=== PATIENT | female | born 1955 | race Two or more races ===

== ENCOUNTER → 2018-07-27 | Outpatient (CLI) | payer BC | END | disposition home or self-care (01) | LOC: LAB 08:58 | PROVIDERS: ATTEND Nurse Practitioner Family | DX: N39.0 Urinary tract infection, site not specified (principal) | CPT/HCPCS: 87086 ==

== ENCOUNTER → 2018-09-24 | Outpatient (CLI) | payer BC ==
[2018-09-24 08:17] LABS: BUN/Creatinine Ratio 21.9; Calcium 8.6 mg/dL (8.5-10.1); Potassium 4.4 mmol/L (3.5-5.1)
== END | disposition home or self-care (01) ==
LOC: LAB 07:09
DX: N30.20 Other chronic cystitis without hematuria (principal); R31.0 Gross hematuria; R39.15 Urgency of urination
CPT/HCPCS: 36415; 80048; 87086

== ENCOUNTER → 2018-12-01 | Outpatient (CLI) | payer BC ==
[2018-12-01 07:35] LABS: Basophils # (auto) 0.1 uL; Basophils % (auto) 1.3 % (0.0-2.0); Eosinophils # (auto) 0.1 uL; Eosinophils % (auto) 1.5 % (0.0-7.0); Hematocrit 37.6 % (36.0-46.0); Hemoglobin 12.3 g/dL (12.2-16.2); Lymphocytes # (auto) 1.8 uL; Lymphocytes % (auto) 42.6 % (10.0-50.0); Mean Corpuscular Hemoglobin 27.6 pg (28.0-32.0); Mean Corpuscular Hgb Conc. 32.8 g/dL (32.0-36.0); Mean Corpuscular Volume 84.1 fL (80.0-100.0); Monocytes # (auto) 0.3 uL; Monocytes % (auto) 6.5 % (0.0-12.0); Neutrophils % (auto) 48.1 % (37.0-80.0); Platelet Count (auto) 246 10^3/uL (140-450); Red Blood Cells 4.47 10^6/uL (4.0-5.20); Red Cell Distribution Width 17.6 % (11.8-14.3); White Blood Cell 4.2 10^3/uL (4.4-10.8)
[2018-12-01 07:55] LABS: Albumin 3.5 g/dL (3.4-5.0); BUN/Creatinine Ratio 18.9; Calcium 8.5 mg/dL (8.5-10.1); Potassium 3.8 mmol/L (3.5-5.1)
[2018-12-01 07:57] LABS: % Iron Saturation 12.1 % (15-50)
[2018-12-01 07:58] LABS: Bilirubin, Total 0.7 mg/dL (0.2-1.0); Total Protein 6.9 g/dL (6.4-8.2)
[2018-12-01 09:20] LABS: Ferritin 6.6 ng/mL (10-322)
== END | disposition home or self-care (01) ==
LOC: LAB 07:09
DX: D46.4 Refractory anemia, unspecified (principal); R10.9 Unspecified abdominal pain
CPT/HCPCS: 36415; 80053; 82607; 82728; 83540; 83550; 85025

== ENCOUNTER → 2019-01-08 | Outpatient (CLI) | payer BC ==
[2019-01-08 12:51] LABS: Urine Bacteria FEW /hpf (None Seen); Urine Blood Negative /uL (Negative); Urine Specific Gravity 1.013 (1.001-1.035); Urine WBC 6 /hpf (0 - 5)
== END | disposition home or self-care (01) ==
LOC: LAB 11:47
DX: N30.20 Other chronic cystitis without hematuria (principal)
CPT/HCPCS: 81001; 87086

== ENCOUNTER → 2019-01-28 | Outpatient (CLI) | payer BC ==
[2019-01-28 13:17] LABS: Basophils # (auto) 0 uL; Basophils % (auto) 0.8 % (0.0-2.0); Eosinophils # (auto) 0.1 uL; Eosinophils % (auto) 1.8 % (0.0-7.0); Hemoglobin 12.1 g/dL (12.2-16.2); Lymphocytes # (auto) 1.9 uL; Lymphocytes % (auto) 38.3 % (10.0-50.0); Mean Corpuscular Hemoglobin 27.6 pg (28.0-32.0); Mean Corpuscular Hgb Conc. 32.8 g/dL (32.0-36.0); Mean Corpuscular Volume 84.3 fL (80.0-100.0); Monocytes # (auto) 0.3 uL; Neutrophils # (auto) 2.5 uL; Neutrophils % (auto) 52.1 % (37.0-80.0); Platelet Count (auto) 229 10^3/uL (140-450); Red Blood Cells 4.39 10^6/uL (4.0-5.20); Red Cell Distribution Width 17.6 % (11.8-14.3); White Blood Cell 4.8 10^3/uL (4.4-10.8)
[2019-01-28 13:34] LABS: INR 1.08 (0.9-1.15); Partial Thromboplastin Time 25.6 sec (23.64-32.05)
[2019-01-28 13:57] LABS: BUN/Creatinine Ratio 15.4; Calcium 8.2 mg/dL (8.5-10.1)
[2019-01-28 14:08] LABS: Urine Blood Negative /uL (Negative)
[2019-01-28 14:10] LABS: Urine Mucus FEW (None Seen); Urine WBC 2 /hpf (0 - 5)
[2019-01-28 14:11] LABS: Urine Bacteria FEW /hpf (None Seen)
== END | disposition home or self-care (01) ==
LOC: LAB 07:05
DX: R39.15 Urgency of urination (principal)
CPT/HCPCS: 36415; 80048; 81001; 85025; 85610; 85730; 87086

== ENCOUNTER → 2019-02-26 | Outpatient (CLI) | payer BC ==
[2019-02-26 07:34] LABS: Basophils # (auto) 0 uL; Basophils % (auto) 0.6 % (0.0-2.0); Eosinophils # (auto) 0.1 uL; Eosinophils % (auto) 1.4 % (0.0-7.0); Hematocrit 37.5 % (36.0-46.0); Hemoglobin 12.3 g/dL (12.2-16.2); Lymphocytes # (auto) 1.5 uL; Mean Corpuscular Hemoglobin 27.5 pg (28.0-32.0); Mean Corpuscular Hgb Conc. 32.7 g/dL (32.0-36.0); Mean Corpuscular Volume 83.9 fL (80.0-100.0); Monocytes # (auto) 0.4 uL; Monocytes % (auto) 7.9 % (0.0-12.0); Neutrophils # (auto) 3.2 uL; Neutrophils % (auto) 62.1 % (37.0-80.0); Platelet Count (auto) 260 10^3/uL (140-450); Red Blood Cells 4.47 10^6/uL (4.0-5.20); Red Cell Distribution Width 17.6 % (11.8-14.3); White Blood Cell 5.2 10^3/uL (4.4-10.8)
[2019-02-26 07:39] LABS: Urine Bacteria NONE SEEN /hpf (None Seen); Urine Blood Negative /uL (Negative); Urine Mucus FEW (None Seen); Urine Specific Gravity 1.029 (1.001-1.035); Urine WBC 11 /hpf (0 - 5)
[2019-02-26 07:47] LABS: INR 1.12 (0.9-1.15); Partial Thromboplastin Time 27.3 sec (23.64-32.05)
[2019-02-26 07:49] LABS: BUN/Creatinine Ratio 18.6; Calcium 8.6 mg/dL (8.5-10.1); Potassium 4.1 mmol/L (3.5-5.1)
== END | disposition home or self-care (01) ==
LOC: LAB 07:05
PROVIDERS: ATTEND Urology
DX: Z01.812 Encounter for preprocedural laboratory examination (principal); R39.15 Urgency of urination; Z79.01 Long term (current) use of anticoagulants
CPT/HCPCS: 36415; 80048; 81001; 85025; 85610; 85730; 87086

== ENCOUNTER → 2019-03-26 | Outpatient (CLI) | payer BC ==
[2019-03-26 08:03] LABS: Basophils # (auto) 0 uL; Eosinophils # (auto) 0.2 uL; Eosinophils % (auto) 4.5 % (0.0-7.0); Hematocrit 37.3 % (36.0-46.0); Hemoglobin 12.1 g/dL (12.2-16.2); Lymphocytes # (auto) 1.7 uL; Lymphocytes % (auto) 38.4 % (10.0-50.0); Mean Corpuscular Hemoglobin 27.1 pg (28.0-32.0); Mean Corpuscular Hgb Conc. 32.4 g/dL (32.0-36.0); Mean Corpuscular Volume 83.5 fL (80.0-100.0); Monocytes # (auto) 0.3 uL; Monocytes % (auto) 7.5 % (0.0-12.0); Neutrophils # (auto) 2.1 uL; Neutrophils % (auto) 48.6 % (37.0-80.0); Nucleated Red Blood Cells % 0.1 %; Platelet Count (auto) 244 10^3/uL (140-450); Red Blood Cells 4.47 10^6/uL (4.0-5.20); Red Cell Distribution Width 17.9 % (11.8-14.3); White Blood Cell 4.4 10^3/uL (4.4-10.8)
[2019-03-26 08:25] LABS: Albumin 3.5 g/dL (3.4-5.0); Calcium 8.4 mg/dL (8.5-10.1)
[2019-03-26 08:27] LABS: Bilirubin, Total 0.4 mg/dL (0.2-1.0); Total Protein 6.8 g/dL (6.4-8.2)
== END | disposition home or self-care (01) ==
LOC: LAB 07:30
DX: K43.9 Ventral hernia without obstruction or gangrene (principal); K43.6 Other and unspecified ventral hernia with obstruction, without gangrene
CPT/HCPCS: 36415; 80053; 85025

== ENCOUNTER → 2019-07-08 | Outpatient (CLI) | payer BC ==
[2019-07-08 08:54] LABS: Urine Bacteria FEW /hpf (None Seen); Urine Blood Negative /uL (Negative); Urine Mucus FEW (None Seen); Urine WBC 25 /hpf (0 - 5)
== END | disposition home or self-care (01) ==
LOC: LAB 07:32
DX: N39.0 Urinary tract infection, site not specified (principal)
CPT/HCPCS: 81001; 87086

== ENCOUNTER → 2019-08-28 | Outpatient (CLI) | payer BC | END | disposition home or self-care (01) | LOC: LAB 12:17 | PROVIDERS: ATTEND Nurse Practitioner Family | DX: Z03.818 Encounter for observation for suspected exposure to other biological agents ruled out (principal) | CPT/HCPCS: 87635 ==

== ENCOUNTER → 2019-10-26 | Outpatient (CLI) | payer BC ==
[2019-10-26 07:36] LABS: Basophils # (auto) 0 10 ^3/uL (0-0.2); Eosinophils # (auto) 0.1 10 ^3/uL (0-0.8); Hemoglobin 11.5 g/dL (12.2-16.2); Lymphocytes # (auto) 1.7 10 ^3/uL (0.4-5.4); Monocytes # (auto) 0.3 10 ^3/uL (0-1.3); Neutrophils # (auto) 1.8 10 ^3/uL (1.6-8.6); Nucleated Red Blood Cells % 0.1 %
[2019-10-26 07:38] LABS: Basophils % (auto) 0.8 % (0.0-2.0); Eosinophils % (auto) 3.1 % (0.0-7.0); Hematocrit 36.2 % (36.0-46.0); Lymphocytes % (auto) 42.2 % (10.0-50.0); Mean Corpuscular Hemoglobin 25.7 pg (28.0-32.0); Mean Corpuscular Hgb Conc. 31.7 g/dL (32.0-36.0); Mean Corpuscular Volume 81.3 fL (80.0-100.0); Monocytes % (auto) 7.9 % (0.0-12.0); Platelet Count (auto) 248 10^3/uL (140-450); Red Blood Cells 4.45 10^6/uL (4.0-5.20); Red Cell Distribution Width 18.1 % (11.8-14.3)
[2019-10-26 07:57] LABS: Albumin 3.5 g/dL (3.4-5.0); Calcium 8.4 mg/dL (8.5-10.1); Potassium 3.9 mmol/L (3.5-5.1)
[2019-10-26 08:01] LABS: BUN/Creatinine Ratio 22.2; Bilirubin, Total 0.4 mg/dL (0.2-1.0); Total Protein 6.7 g/dL (6.4-8.2)
== END | disposition home or self-care (01) ==
LOC: LAB 07:24
PROVIDERS: ATTEND Physician Assistant
DX: Z00.00 Encounter for general adult medical examination without abnormal findings (principal); E61.1 Iron deficiency; E53.8 Deficiency of other specified B group vitamins; E55.9 Vitamin D deficiency, unspecified; K29.50 Unspecified chronic gastritis without bleeding; N39.0 Urinary tract infection, site not specified; Z83.49 Family history of other endocrine, nutritional and metabolic diseases; Z98.890 Other specified postprocedural states
CPT/HCPCS: 36415; 80053; 80061; 82306; 82607; 84443; 85025

== ENCOUNTER → 2020-03-13 | Outpatient (CLI) | payer BC | END | disposition home or self-care (01) | LOC: LAB 06:49 | PROVIDERS: ATTEND Nurse Practitioner Family | DX: N39.0 Urinary tract infection, site not specified (principal) | CPT/HCPCS: 87086 ==

== ENCOUNTER 2020-08-08 19:51 | Emergency (ER) | payer BC ==
[~2020-08-08] VITALS: Ht 152.4 cm; Wt 73.5 kg
[2020-08-08 21:21] LABS: Basophils # (auto) 0 10 ^3/uL (0-0.2); Eosinophils # (auto) 0.1 10 ^3/uL (0-0.8); Hemoglobin 11.7 g/dL (12.2-16.2); Mean Corpuscular Hgb Conc. 32.7 g/dL (32.0-36.0); Monocytes # (auto) 0.4 10 ^3/uL (0-1.3); Neutrophils # (auto) 2.9 10 ^3/uL (1.6-8.6); Nucleated Red Blood Cells % 0.1 %
[2020-08-08 21:22] LABS: Basophils % (auto) 0.9 % (0.0-2.0); Hematocrit 35.8 % (36.0-46.0); Lymphocytes % (auto) 37.6 % (10.0-50.0); Mean Corpuscular Hemoglobin 26.5 pg (28.0-32.0); Monocytes % (auto) 6.9 % (0.0-12.0); Neutrophils % (auto) 52.6 % (37.0-80.0); Platelet Count (auto) 253 10^3/uL (140-450); Red Blood Cells 4.42 10^6/uL (4.0-5.20); Red Cell Distribution Width 17.6 % (11.8-14.3); White Blood Cell 5.4 10^3/uL (4.4-10.8)
[2020-08-08 21:29] LABS: Albumin 3.7 g/dL (3.4-5.0); Anion Gap 7 (5-15); Blood Urea Nitrogen 13 mg/dL (7-18); Calcium 8.5 mg/dL (8.5-10.1); Carbon Dioxide 24 mmol/L (21-32); Chloride 108 mmol/L (98-107); Glucose 120 mg/dL (74-106); Magnesium 2.6 mg/dL (1.6-2.6); Potassium 4.3 mmol/L (3.5-5.1); Sodium 139 mmol/L (136-145)
[2020-08-08 21:35] LABS: Alanine Aminotransferase 23 U/L (13-56); Alkaline Phosphatase 79 U/L (45-117); Aspartate Aminotransferase 21 U/L (15-37); BUN/Creatinine Ratio 20.6; Bilirubin, Total 0.4 mg/dL (0.2-1.0); GFR African American 122 mL/min; GFR Non-African American 101 mL/min; Total Protein 7.2 g/dL (6.4-8.2)
[2020-08-09 01:19] VITALS: BP 126/75
== END 2020-08-09 01:21 | disposition home or self-care (01) ==
LOC: EEVIPCON 19:54 → ER 19:54
DX: E16.2 Hypoglycemia, unspecified (principal); R06.02 Shortness of breath; R61 Generalized hyperhidrosis
CPT/HCPCS: 36415; 80053; 82962; 83735; 84484; 85025; 93005

== ENCOUNTER 2021-06-03 19:07 | Inpatient (IN) | payer BC ==
[~2021-06-03] VITALS: Ht 152.4 cm; Wt 92.5 kg
[2021-06-03] MEDS ORDERED: METOCLOPRAMIDE HCL 5MG/ml INJ 2ml VIAL IV ONE (19:30)
[2021-06-03] MEDS ORDERED: LIDOCAINE VISCOUS 2% 15ML UD PO ONE (19:30)
[2021-06-03] MEDS ORDERED: FAMOTIDINE (10MG/ML) 2ML VL IV ONE (19:30)
[2021-06-03] MEDS ORDERED: ALUM & MAG HYDROX-SIMETH LIQ(MAALOX) 30 ML PO ONE (19:30)
[2021-06-03 19:53] LABS: Basophils # (auto) 0 10 ^3/uL (0-0.2); Eosinophils # (auto) 0 10 ^3/uL (0-0.8); Eosinophils % (auto) 0.1 % (0.0-7.0); Hemoglobin 11.6 g/dL (12.2-16.2); Monocytes # (auto) 0.2 10 ^3/uL (0-1.3); Monocytes % (auto) 2.5 % (0.0-12.0); Neutrophils # (auto) 7.2 10 ^3/uL (1.6-8.6); White Blood Cell 8.4 10^3/uL (4.4-10.8)
[2021-06-03 19:55] LABS: Basophils % (auto) 0.5 % (0.0-2.0); Hematocrit 35.4 % (36.0-46.0); Lymphocytes # (auto) 0.9 10 ^3/uL (0.4-5.4); Lymphocytes % (auto) 11.2 % (10.0-50.0); Mean Corpuscular Hemoglobin 25.3 pg (28.0-32.0); Mean Corpuscular Hgb Conc. 32.8 g/dL (32.0-36.0); Mean Corpuscular Volume 77.2 fL (80.0-100.0); Neutrophils % (auto) 85.7 % (37.0-80.0); Red Blood Cells 4.59 10^6/uL (4.0-5.20); Red Cell Distribution Width 18.7 % (11.8-14.3)
[2021-06-03 20:16] LABS: Albumin 3.9 g/dL (3.4-5.0); Calcium 9.1 mg/dL (8.5-10.1); Potassium 3.5 mmol/L (3.5-5.1)
[2021-06-03 20:20] LABS: Bilirubin, Total 0.6 mg/dL (0.2-1.0); Lactic Acid w/Reflex 2.4 mmol/L (0.4-2.0); Total Protein 7.4 g/dL (6.4-8.2)
[2021-06-03] MEDS ORDERED: IOHEXOL 300 MG/ML 100ML BOTTLE IJ ONE (20:21)
[2021-06-03] MEDS ORDERED: LACTATED RINGER'S 1,000 ML IV ONE (23:00)
[2021-06-03] MEDS ORDERED: SODIUM CHLORIDE 0.9% 1,000 ML IV SCH (23:45)
[2021-06-03] MEDS ORDERED: PANTOPRAZOLE 40 MG/10 ML VIAL INJ IV ONE (23:45)
[2021-06-03 23:58] LABS: Cholesterol 204 mg/dL (< 200); Triglycerides 55 mg/dL (< 150)
[2021-06-04 00:01] LABS: HDL Cholesterol 77 mg/dL (40-59); LDL Cholesterol 100 mg/dL (< 100)
[2021-06-04] MEDS: ONDANSETRON HCL 4 MG/2 ML VIAL IV PRN ×3 (00:28→15:39)
[2021-06-04] MEDS: MORPHINE SULFATE 4 MG/ML SYR/VIAL IV PRN ×2 (00:28→10:30)
[2021-06-04] MEDS: SOD CHL 0.45% WITH 20MEQ KCL 1,000 ML IV SCH ×3 (01:10→23:05)
[2021-06-04 05:32] LABS: Basophils # (auto) 0 10 ^3/uL (0-0.2); Eosinophils # (auto) 0 10 ^3/uL (0-0.8); Hemoglobin 10.8 g/dL (12.2-16.2); Mean Corpuscular Hemoglobin 25.7 pg (28.0-32.0); Monocytes # (auto) 0.2 10 ^3/uL (0-1.3); Neutrophils # (auto) 4.7 10 ^3/uL (1.6-8.6); Red Cell Distribution Width 18.7 % (11.8-14.3)
[2021-06-04 05:35] LABS: Basophils % (auto) 0.3 % (0.0-2.0); Hematocrit 31.9 % (36.0-46.0); Lymphocytes % (auto) 16.5 % (10.0-50.0); Mean Corpuscular Hgb Conc. 33.8 g/dL (32.0-36.0); Monocytes % (auto) 3.1 % (0.0-12.0); Neutrophils % (auto) 80.1 % (37.0-80.0); White Blood Cell 5.8 10^3/uL (4.4-10.8)
[2021-06-04 06:00] LABS: Albumin 3.4 g/dL (3.4-5.0); BUN/Creatinine Ratio 17.9; Calcium 8.6 mg/dL (8.5-10.1); Magnesium 2.3 mg/dL (1.6-2.6); Potassium 3.7 mmol/L (3.5-5.1)
[2021-06-04 06:03] LABS: Bilirubin, Total 0.6 mg/dL (0.2-1.0); Total Protein 6.7 g/dL (6.4-8.2)
[2021-06-04] MEDS: PANTOPRAZOLE 40 MG/10 ML VIAL INJ IV SCH (10:29)
[2021-06-04] MEDS ORDERED: PANT40TA2 PO (10:55)
[2021-06-04] MEDS ORDERED: LINA290C OR (10:55)
[2021-06-04] MEDS ORDERED: KETOROLAC TROMETH 30 MG/ML 1ML VIAL IV PRN (11:00)
[2021-06-04 12:30] VITALS: BP 114/67
[2021-06-04] MEDS ORDERED: GASTROGRAFIN 120 ML SOL ONE (14:09)
[2021-06-04 16:30] VITALS: BP 146/82
[2021-06-04 22:00] VITALS: BP 97/54
[2021-06-05 05:00] VITALS: BP 100/56
[2021-06-05 05:40] LABS: % Iron Saturation 7.7 % (15-50); Hematocrit 31.5 % (36.0-46.0); Hemoglobin 10.6 g/dL (12.2-16.2)
[2021-06-05] MEDS: SOD CHL 0.45% WITH 20MEQ KCL 1,000 ML IV SCH ×3 (06:00→23:49)
[2021-06-05 06:50] LABS: Potassium 3.5 mmol/L (3.5-5.1)
[2021-06-05 07:07] LABS: BUN/Creatinine Ratio 19.7; Calcium 8.2 mg/dL (8.5-10.1)
[2021-06-05 08:52] VITALS: BP 117/69
[2021-06-05] MEDS: PANTOPRAZOLE 40 MG/10 ML VIAL INJ IV SCH (09:31)
[2021-06-05 13:00] VITALS: BP 133/80
[2021-06-05] MEDS ORDERED: ACETAMINOPHEN 325 MG TAB PO PRN (13:45)
[2021-06-05 17:30] VITALS: BP 136/84
[2021-06-05 22:00] VITALS: BP 80/37
[2021-06-06 05:00] VITALS: BP 119/74
[2021-06-06 07:07] LABS: Hematocrit 32.2 % (36.0-46.0); Hemoglobin 10.8 g/dL (12.2-16.2)
[2021-06-06] MEDS: PANTOPRAZOLE 40 MG/10 ML VIAL INJ IV SCH (08:55)
[2021-06-06 09:00] VITALS: BP 115/83
[2021-06-06] MEDS: SOD CHL 0.45% WITH 20MEQ KCL 1,000 ML IV SCH (12:00)
[2021-06-06 13:26] VITALS: BP 119/84
== END 2021-06-06 14:45 | disposition home or self-care (01) | DRG 390 ==
LOC: ER 19:07 → OVERFLOW 23:34 → EAST 06-04 08:32
PROVIDERS: ADMIT Registered Nurse; ATTEND Internal Medicine
PROC: 0D9670Z Drainage of Stomach with Drainage Device, Via Natural or Artificial Opening (ICD-10-PCS; principal; 2021-06-05)
DX: K56.51 Intestinal adhesions [bands], with partial obstruction (principal); N18.2 Chronic kidney disease, stage 2 (mild); D50.9 Iron deficiency anemia, unspecified; E66.9 Obesity, unspecified; E78.5 Hyperlipidemia, unspecified; M19.90 Unspecified osteoarthritis, unspecified site; K21.9 Gastro-esophageal reflux disease without esophagitis; Z98.84 Bariatric surgery status; Z90.710 Acquired absence of both cervix and uterus; Z90.49 Acquired absence of other specified parts of digestive tract; Z68.39 Body mass index [BMI] 39.0-39.9, adult; Z20.822 Contact with and (suspected) exposure to COVID-19
CPT/HCPCS: 36415; 71045; 74177; 74250; 80048; 80053; 80061; 83036; 83540; 83550; 83605; 83690; 83735; 84132; 84484; 85014; 85018; 85025; 86850; 86900; 86901; 93005; 96361; 96374; 96375; 97163; C9113; G0378; J2405; J3490

== ENCOUNTER → 2022-06-05 | Outpatient (CLI) | payer BC ==
[~2022-06-05] MED LIST: LINA290C OR; PANT40TA2 PO
[2022-06-05 06:44] LABS: Basophils # (auto) 0 10 ^3/uL (0-0.2); Eosinophils # (auto) 0.1 10 ^3/uL (0-0.8); Hemoglobin 11.3 g/dL (12.2-16.2); Lymphocytes # (auto) 1.7 10 ^3/uL (0.4-5.4); Monocytes # (auto) 0.2 10 ^3/uL (0-1.3); Neutrophils # (auto) 1.4 10 ^3/uL (1.6-8.6); White Blood Cell 3.4 10^3/uL (4.4-10.8)
[2022-06-05 06:48] LABS: Basophils % (auto) 0.9 % (0.0-2.0); Eosinophils % (auto) 2.5 % (0.0-7.0); Hematocrit 34.8 % (36.0-46.0); Mean Corpuscular Hemoglobin 26.4 pg (28.0-32.0); Mean Corpuscular Hgb Conc. 32.5 g/dL (32.0-36.0); Mean Corpuscular Volume 81.1 fL (80.0-100.0); Monocytes % (auto) 7.3 % (0.0-12.0); Neutrophils % (auto) 39.3 % (37.0-80.0); Nucleated Red Blood Cells % 0.1 %; Red Blood Cells 4.29 10^6/uL (4.0-5.20); Red Cell Distribution Width 19.3 % (11.8-14.3)
[2022-06-05 07:14] LABS: Urine Bacteria FEW /hpf (None Seen); Urine Blood Negative /uL (Negative); Urine Mucus FEW (None Seen); Urine Specific Gravity 1.027 (1.001-1.035); Urine WBC 9 /hpf (0 - 5)
[2022-06-05 07:30] LABS: Albumin 3.3 g/dL (3.4-5.0); Calcium 8.6 mg/dL (8.5-10.1); Potassium 4.1 mmol/L (3.5-5.1)
[2022-06-05 07:37] LABS: BUN/Creatinine Ratio 22.6 (10.0-20.0); Bilirubin, Total 0.5 mg/dL (0.2-1.0); Total Protein 6.8 g/dL (6.4-8.2)
[2022-06-05 08:04] LABS: Free T4 (Free Thyroxine) 0.82 ng/dL (0.89-1.76)
== END | disposition home or self-care (01) ==
LOC: LAB 06:09
PROVIDERS: ATTEND Internal Medicine
DX: M81.0 Age-related osteoporosis without current pathological fracture (principal); K21.9 Gastro-esophageal reflux disease without esophagitis
CPT/HCPCS: 36415; 80053; 80061; 81001; 82306; 82607; 84439; 84443; 85025; 85652

== ENCOUNTER → 2023-02-03 | Outpatient (CLI) | payer BC ==
[2023-02-03 06:32] LABS: Eosinophils # (auto) 0.1 10 ^3/uL (0-0.8); Eosinophils % (auto) 2.6 % (0.0-7.0); Hemoglobin 10.8 g/dL (12.2-16.2); Lymphocytes # (auto) 1.7 10 ^3/uL (0.4-5.4); Neutrophils # (auto) 1.4 10 ^3/uL (1.6-8.6); White Blood Cell 3.5 10^3/uL (4.4-10.8)
[2023-02-03 06:34] LABS: Basophils # (auto) 0 10 ^3/uL (0-0.2); Basophils % (auto) 1.2 % (0.0-2.0); Hematocrit 34.1 % (36.0-46.0); Lymphocytes % (auto) 48.8 % (10.0-50.0); Mean Corpuscular Hemoglobin 24.5 pg (28.0-32.0); Mean Corpuscular Hgb Conc. 31.6 g/dL (32.0-36.0); Mean Corpuscular Volume 77.7 fL (80.0-100.0); Monocytes # (auto) 0.3 10 ^3/uL (0-1.3); Monocytes % (auto) 7.9 % (0.0-12.0); Neutrophils % (auto) 39.5 % (37.0-80.0); Red Blood Cells 4.39 10^6/uL (4.0-5.20)
[2023-02-03 06:37] LABS: Red Cell Distribution Width 20.4 % (11.8-14.3)
[2023-02-03 06:40] LABS: Urine Bacteria FEW /hpf (None Seen); Urine Blood Negative /uL (Negative); Urine Clarity HAZY (Clear); Urine Color Yellow (Yellow); Urine Hyaline Cast FEW /lpf (0 - 2); Urine Mucus FEW (None Seen); Urine Protein, UAD Negative (Negative); Urine Specific Gravity 1.019 (1.001-1.035); Urine Urobilinogen Normal (Negative); Urine WBC 168 /hpf (0 - 5); Urine pH 5.5 (5.0-8.0)
[2023-02-03 07:47] LABS: Alanine Aminotransferase 13 U/L (7-40); Alkaline Phosphatase 52 U/L (46-116); Anion Gap 7 (5-15); Aspartate Aminotransferase 14 U/L (13-40); BUN/Creatinine Ratio 17.7 (10.0-20.0); Blood Urea Nitrogen 11 mg/dL (9-23); Calcium 8.9 mg/dL (8.5-10.1); Carbon Dioxide 28 mmol/L (20-30); Chloride 106 mmol/L (98-107); Glucose 85 mg/dL (74-106); LDL Cholesterol 103 mg/dL (< 100); Potassium 3.8 mmol/L (3.5-5.1); Sodium 141 mmol/L (136-145); Triglycerides 68 mg/dL (< 150)
[2023-02-03 07:48] LABS: Bilirubin, Total 0.5 mg/dL (0.2-1.0); Cholesterol 173 mg/dL (< 200); HDL Cholesterol 66 mg/dL (40-59); Total Protein 6.2 g/dL (5.7-8.2)
[2023-02-03 12:18] LABS: Free T4 (Free Thyroxine) 0.92 ng/dL (0.89-1.76)
== END | disposition home or self-care (01) ==
LOC: LAB 06:03
PROVIDERS: ATTEND Nurse Practitioner Family
DX: E78.5 Hyperlipidemia, unspecified (principal); D50.9 Iron deficiency anemia, unspecified; E55.9 Vitamin D deficiency, unspecified; E53.8 Deficiency of other specified B group vitamins
CPT/HCPCS: 36415; 80053; 80061; 81001; 82306; 82607; 84439; 84443; 85025

== ENCOUNTER → 2023-10-22 | Outpatient (CLI) | payer BC ==
[2023-10-22 06:56] LABS: Urine Bacteria None Seen /hpf (None Seen)
[2023-10-22 07:15] LABS: Urine Blood Negative /uL (Negative); Urine Clarity Clear (Clear); Urine Color Yellow (Yellow); Urine Mucus FEW (None Seen); Urine Protein, UAD 1+ (Negative); Urine Specific Gravity 1.031 (1.001-1.035); Urine Urobilinogen 2 mg/dL (Negative); Urine WBC 17 /hpf (0 - 5)
== END | disposition home or self-care (01) ==
LOC: LAB 06:33
PROVIDERS: ATTEND Internal Medicine
DX: N30.20 Other chronic cystitis without hematuria (principal)
CPT/HCPCS: 81001; 87086

== ENCOUNTER → 2023-11-20 | Outpatient (CLI) | payer BC ==
[2023-11-20 06:37] LABS: Basophils # (auto) 0 10 ^3/uL (0-0.2); Eosinophils # (auto) 0.1 10 ^3/uL (0-0.8); Hematocrit 31.4 % (36.0-46.0); Monocytes # (auto) 0.3 10 ^3/uL (0-1.3); Neutrophils # (auto) 1.2 10 ^3/uL (1.6-8.6); Red Cell Distribution Width 19.9 % (11.8-14.3)
[2023-11-20 06:39] LABS: Eosinophils % (auto) 2.4 % (0.0-7.0); Hemoglobin 10.3 g/dL (12.2-16.2); Lymphocytes # (auto) 1.7 10 ^3/uL (0.4-5.4); Lymphocytes % (auto) 51.4 % (10.0-50.0); Mean Corpuscular Hemoglobin 24.5 pg (28.0-32.0); Mean Corpuscular Volume 74.3 fL (80.0-100.0); Neutrophils % (auto) 37.2 % (37.0-80.0); Nucleated Red Blood Cells % 0.1 %; Platelet Count (auto) 259 10^3/uL (140-450); Red Blood Cells 4.23 10^6/uL (4.0-5.20); White Blood Cell 3.3 10^3/uL (4.4-10.8)
[2023-11-20 07:27] LABS: Alanine Aminotransferase 14 U/L (7-40); Albumin 4.2 g/dL (3.2-4.8); Alkaline Phosphatase 61 U/L (46-116); Anion Gap 8 (5-15); Aspartate Aminotransferase 14 U/L (13-40); Blood Urea Nitrogen 13 mg/dL (9-23); Calcium 9.1 mg/dL (8.7-10.4); Carbon Dioxide 26 mmol/L (20-30); Chloride 108 mmol/L (98-107); Cholesterol 175 mg/dL (< 200); Glucose 90 mg/dL (74-106); HDL Cholesterol 69 mg/dL (40-59); LDL Cholesterol 97 mg/dL (< 100); Potassium 3.9 mmol/L (3.5-5.1); Sodium 142 mmol/L (136-145); Triglycerides 79 mg/dL (< 150)
[2023-11-20 07:28] LABS: Bilirubin, Total 0.6 mg/dL (0.2-1.0); Total Protein 6.5 g/dL (5.7-8.2)
== END | disposition home or self-care (01) ==
LOC: LAB 06:16
PROVIDERS: ATTEND Nurse Practitioner Family
DX: I12.9 Hypertensive chronic kidney disease with stage 1 through stage 4 chronic kidney disease, or unspecified chronic kidney disease (principal); N18.2 Chronic kidney disease, stage 2 (mild); D50.9 Iron deficiency anemia, unspecified; D63.8 Anemia in other chronic diseases classified elsewhere; E55.9 Vitamin D deficiency, unspecified
CPT/HCPCS: 36415; 80053; 80061; 82306; 84443; 85025

== ENCOUNTER → 2024-02-02 | Outpatient (CLI) | payer BC | END | disposition home or self-care (01) | LOC: LAB 06:21 | PROVIDERS: ATTEND Nurse Practitioner Family | DX: E16.2 Hypoglycemia, unspecified (principal) ==

== ENCOUNTER 2024-05-11 12:19 | Inpatient (IN) | payer BC, MEDICARE ==
[~2024-05-11] VITALS: Ht 154.9 cm; Wt 78.0 kg
--- NOTE | 2024-05-11 13:13 | ED.PDOC ---
GI ASSESSMENT HPI Comments 69 y/o F, with PMHX of small bowel obstructions presents to the ED for CC of abdominal pain. Patient states, that she has been experiencing intermittent LUQ abdominal pain with associated nausea and vomiting x2days. Patient relays, that she was seen at [facility] urgent care and was relayed to the ED for a further evaluation. Patient endorses, similar symptoms in the past with small bowel obstructions. Patient denies constipation, diarrhea, fever, or body-aches. No other symptoms or modifying factors at this time. Chief Complaint: Abdominal Pain Time Seen by MD: 13:00 Reviewed Notes: Nurses Notes, Medications, Allergies Allergies: Coded Allergies: Sulfa Antibiotics (Verified Allergy, Mild, 06/05/21) PT REPORTS RASH Atropine (Verified Allergy, Unknown, 06/05/21) Hyoscyamine (Verified Allergy, Unknown, 06/05/21) Phenobarbital (Verified Allergy, Unknown, 06/05/21) Scopolamine (Verified Allergy, Unknown, 06/05/21) Home Meds Reported Medications Linaclotide Base (LINZESS) 290 Mcg Cap, 290 MCG OR, CAP 06/04/21 Pantoprazole Sodium Sesquihydr (Protonix) 40 Mg Tab, 40 MG PO DAILY, #30 TAB 06/04/21 Information Source: Patient Mode of Arrival: Wheelchair Timing: Hours Duration: Since onset Prehospital treatment: None Quality: None Vomitus: Watery Stool: Normal Severity: Moderate Recent: None Recent Hx of: None Pain Location: LUQ Modifying Factors: Nothing Associated sign and symptoms: Nausea, Vomiting, Abdominal Pain Past Medical History PAST MEDICAL HISTORY: Denies Surgical History: Cholecystectomy, , Hernia Repair TELEGRAPH OPERATOR History: No Pertinent TELEGRAPH OPERATOR History Family History Family History: Reviewed,noncontributory to illness Social History Smoker: Non-Smoker Alcohol: Denies ETOH Use Drugs: Denies Drug Use Lives In: Home Constitutional: denies: chills, diaphoresis, fatigue, fever, malaise, sweats, w eakness, others EENTM: denies: blurred vision, double vision, ear bleeding, ear discharge, ear drainage, ear pain, ear ringing, eye pain, eye redness, hearing loss, mouth pain, mouth swelling, nasal discharge, nose bleeding, nose congestion, nose pain, photophobia, tearing, throat pain, throat swelling, voice changes, others Respiratory: denies: cough, hemoptysis, orthopnea, SOB at rest, shortness of breath, SOB with excertion, stridor, wheezing, others Cardiovascular: denies: chest pain, dizzy spells, diaphoresis, Dyspnea on exertion, edema, irregular heart beat, left arm pain, lightheadedness, palpitations, PND, syncope, others Gastrointestinal: reports: abdominal pain, nausea, vomiting; denies: abdomen distended, blood streaked bowels, constipated, diarrhea, dysphagia, difficulty swallowing, hematemesis, melena, poor appetite, poor fluid intake, rectal bleed ing, rectal pain, others Genitourinary: denies: abnormal vagina bleeding, burning, dyspareunia, dysuria, flank pain, frequency, hematuria, incontinence, pain, , vagina discharge, urgency, others Neurological: denies: dizziness, fainting, headache, left sided numbness, left sided weakness, numbness, paresthesia, pre-existing deficit, right sided numbness, right sided weakness, seizure, speech problems, tingling, tremors, weakness, others Musculoskeletal: denies: back pain, gout, joint pain, joint swelling, muscle pain, muscle stiffness, neck pain, others Integumetry: denies: bruises, change in color, change in hair/nails, dryness, laceration, lesions, lumps, rash, wounds, others Allergic/Immunocompromised: denies: Difficulty Healing, Frequent Infections, Hives, Itching, others Hematologic/Lymphatic: denies: anemia, blood clots, easy bleeding, easy bruising, swollen glands, others Endocrine: denies: excessive hunger, excessive sweating, excessive thirst, excessive urination, flushing, intolerance to cold, intolerance to heat, unexplained weight gain, unexplained weight loss, others Psychiatric: denies: anxiety, bipolar disorder, depression, hopeless, panic disorder, schizophrenia, sleepless, suicidal, others All Other Systems: Reviewed and Negative Physical Exam General Appearance: Moderate Distress HEENT: Normal ENT Inspection, Pharynx Normal, TMs Normal Neck: Full Range of Motion, Non-Tender, Normal, Normal Inspection Respiratory: Chest Non-Tender, Lungs Clear, No Accessory Muscle Use, No Respiratory Distress, Normal Breath Sounds Cardiovascular: No Edema, No JVD, No Murmur, No Gallop, Normal Peripheral Pulses, Regular Rate/Rhythm Breast Exam: Deferred Gastrointestinal: Diffuse, No Organomegaly, No Pulsatile Mass, Normal Bowel Sounds, Soft, Tenderness Genitalia: Deferred Pelvic: Deferred Rectal: Deferred Extremities: No calf tenderness, Normal capillary refill, Normal inspection, Normal range of motion, Non-tender, No pedal edema Musculoskeletal : Apperance: Normal Neurologic: Alert, latent fingerprint examiner II-XII nml as Tested, Motor Weakness, Normal Affect, Normal Mood, No Sensory Deficits Cerebellar Function: Normal Reflexes: Normal Skin: Dry, Normal Color, Warm Lymphatic: No Adenopathy Was a procedure done? Was a procedure done?: No GI differential Dx Differential Diagnosis: Gastritis/PUD, Gastroenteritis, Electrolyte Imbalance, Food Poisoning, Bacterial, Viral X-Ray, Labs, Meds, VS Vital Signs Date Time Temp Pulse Resp B/P (MAP) Pulse Ox O2 Delivery O2 Flow Rate FiO2 05/11/24 12:52 98.1 89 16 132/83 (99) 99 98.1 Lab Test 05/11/24 13:55 Range/Units White Blood Count 8.6 4.4-10.8 10^3/uL Red Blood Count 5.10 4.0-5.20 10^6/uL Hemoglobin 11.9 L 12.2-16.2 g/dL Hematocrit 38.2 36.0-46.0 % Mean Corpuscular Volume 75.0 L 80.0-100.0 fL Mean Corpuscular Hemoglobin 23.4 L 28.0-32.0 pg Mean Corpuscular Hemoglobin Concent 31.3 L 32.0-36.0 g/dL Red Cell Distribution Width 20.5 H 11.8-14.3 % Platelet Count 289 140-450 10^3/uL Mean Platelet Volume 8.3 6.9-10.8 fL Neutrophils (%) (Auto) 75.1 37.0-80.0 % Lymphocytes (%) (Auto) 18.4 10.0-50.0 % Monocytes (%) (Auto) 6.0 0.0-12.0 % Eosinophils (%) (Auto) 0.2 0.0-7.0 % Basophils (%) (Auto) 0.3 0.0-2.0 % Neutrophils # (Auto) 6.4 1.6-8.6 10 ^3/uL Lymphocytes # (Auto) 1.6 0.4-5.4 10 ^3/uL Monocytes # (Auto) 0.5 0-1.3 10 ^3/uL Eosinophils # (Auto) 0 0-0.8 10 ^3/uL Basophils # (Auto) 0 0-0.2 10 ^3/uL Nucleated Red Blood Cells 0.1 % Sodium Level 139 136-145 mmol/L Potassium Level 3.7 3.5-5.1 mmol/L Chloride Level 106 98-107 mmol/L Carbon Dioxide Level 25 20-31 mmol/L Anion Gap 8 5-15 Blood Urea Nitrogen 12 9-23 mg/dL Creatinine 0.57 0.550-1.02 mg/dL Glomerular Filtration Rate Calc 99 >90 mL/min BUN/Creatinine Ratio 21.1 H 10.0-20.0 Serum Glucose 104 74-106 mg/dL Calcium Level 9.8 8.7-10.4 mg/dL Total Bilirubin 0.9 0.2-1.0 mg/dL Aspartate Amino Transferase (AST) 20 13-40 U/L Alanine Aminotransferase (ALT) 19 7-40 U/L Alkaline Phosphatase 61 46-116 U/L Total Protein 7.8 5.7-8.2 g/dL Albumin 5.0 H 3.2-4.8 g/dL Lipase 39 12-53 U/L CT ABD PEL: FINDINGS: Lung bases: Lung bases are clear. Liver: Grossly unremarkable in its noncontrast enhanced appearance. No abnormal density or focal lesion identified. Biliary: No calcified gallstones or biliary ductal dilatation. Spleen: Unremarkable. Pancreas: Grossly unremarkable in its noncontrast enhanced appearance. Adrenal glands: Unremarkable. No mass. Kidneys: No hydronephrosis. No renal or ureteral calculi. Aorta/Vascular: No aneurysm or significant calcification. Retroperitoneum: No mass or lymphadenopathy. Bowel/mesentery: Postsurgical changes of prior gastric bypass surgery. There are distended fluid-filled small bowel loops, most prominent in the left upper abdomen proximal to a surgical anastomosis in the central abdomen, with similar appearance compared to previous CT from 2021. There is some fecalization of small bowel in the left upper abdomen, which suggests bowel stasis, although also present on the prior CT exam. No transition point identified to suggest small bowel obstruction. Appendix is not visualized, appears to be surgically absent, with postsurgical changes adjacent to the cecum. Scattered colonic diverticula without adjacent inflammatory changes to suggest diverticulitis. Pelvic organs: Uterus is surgically absent. Bladder: Unremarkable. No mass. Abdominal wall: Small umbilical hernia with a loop of small bowel extending slightly into the hernia sac without evidence of obstruction. Bones: No acute fracture or suspicious intraosseous lesion. Chronic appearing mild compression deformities of the superior endplates of the L2 and L3 vertebral bodies, unchanged. IMPRESSION: 1. Distended fluid-filled small bowel loops, most prominent in the left upper abdomen proximal to a surgical anastomosis. There may be a degree of partial small bowel obstruction at the anastomosis. Findings appear similar compared to the prior exam. Correlate with clinical findings. Superimposed ileus or enteritis could also be considered. 2. 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 3. Scattered colonic diverticula without adjacent inflammatory changes to suggest diverticulitis. 4. Small umbilical hernia containing a loop of small bowel without evidence of obstruction. IV Hep-Lock was established The patient was being given morphine 4 mg IV push for the pain The patient was given Zofran 4 mg IV push for the nausea The CBC is within normal limits The chemistry panel is within normal limits Because of the small bowel obstruction, the patient was being admitted An NG-tube is being ordered Images Reviewed?: Images reviewed and evaluated by me Time of 1ST Reevaluation: 13:30 Reevaluation 1ST: Unchanged Patient Education/Counseling: Diagnosis, Treatment, Prognosis Family Education/Counseling: No Family Present Departure 1 Departure Time of Disposition: 16:52 Impression: Primary Impression: Small bowel obstruction due to adhesions Additional Impressions: Acute abdominal pain Intractable vomiting Disposition: ADMITTED INPATIENT Admit to: Med Surg Condition: Fair Critical Care Note Critical Care Time?: No Stability Stability form required: Yes Unstable for transfer: ED Physician Assesment (Clinical assesment) Heart Score Heart Score: Heart Score Response (Comments) Value History N/A 0 EKG N/A 0 Age N/A 0 Risk Factors N/A 0 Troponin N/A 0 Total 0 I personally scribed for KARLI JOHNSON MD ([email or web address]) on 05/11/24 at 13:13. Electronically submitted by Dunia Hatch ([email or web address]). I personally scribed for KARLI JOHNSON MD ([email or web address]) on 05/11/24 at 15:04. Electronically submitted by Dunia Hatch ([email or web address]). KARLI JOHNSON MD May 11, 2024 13:13
[2024-05-11 14:05] LABS: Basophils # (auto) 0 10 ^3/uL (0-0.2); Basophils % (auto) 0.3 % (0.0-2.0); Eosinophils # (auto) 0 10 ^3/uL (0-0.8); Eosinophils % (auto) 0.2 % (0.0-7.0); Hematocrit 38.2 % (36.0-46.0); Hemoglobin 11.9 g/dL (12.2-16.2); Lymphocytes # (auto) 1.6 10 ^3/uL (0.4-5.4); Lymphocytes % (auto) 18.4 % (10.0-50.0); Mean Corpuscular Hemoglobin 23.4 pg (28.0-32.0); Mean Corpuscular Hgb Conc. 31.3 g/dL (32.0-36.0); Monocytes # (auto) 0.5 10 ^3/uL (0-1.3); Neutrophils # (auto) 6.4 10 ^3/uL (1.6-8.6); Neutrophils % (auto) 75.1 % (37.0-80.0); Nucleated Red Blood Cells % 0.1 %; Platelet Count (auto) 289 10^3/uL (140-450); Red Cell Distribution Width 20.5 % (11.8-14.3); White Blood Cell 8.6 10^3/uL (4.4-10.8)
--- NOTE | 2024-05-11 14:30 | DVH ---
CLINICAL INFORMATION: 69 years old, Female; pain. TECHNIQUE: Axial CT images of the abdomen and pelvis were obtained without IV contrast. Coronal and s agittal reformatted images were obtained, reviewed, and stored. Evaluation of the parenchymal organs is limited without IV contrast. Evaluation of the bowel and mesentery is limited without oral contras t. All CT scans at this medical facility are performed using dose modulation techniques as appropriat e to a performed exam including the following: Automated exposure control was utilized; adjustment of the MA and/or KV according to patient size; and use of iterative reconstruction technique. CTDIvol = 11.69 mGy DLP = 588.67 mGy-cm COMPARISON: CT dated 06/03/2021. FINDINGS: Lung bases: Lung bases are clear. Liver: Grossly unremarkable in its noncontrast enhanced appearance. No abnormal density or focal lesi on identified. Biliary: No calcified gallstones or biliary ductal dilatation. Spleen: Unremarkable. Pancreas: Grossly unremarkable in its noncontrast enhanced appearance. Adrenal glands: Unremarkable. No mass. Kidneys: No hydronephrosis. No renal or ureteral calculi. Aorta/Vascular: No aneurysm or significant calcification. Retroperitoneum: No mass or lymphadenopathy. Bowel/mesentery: Postsurgical changes of prior gastric bypass surgery. There are distended fluid-eduardo led small bowel loops, most prominent in the left upper abdomen proximal to a surgical anastomosis in the central abdomen, with similar appearance compared to previous CT from 2021. There is some fecali zation of small bowel in the left upper abdomen, which suggests bowel stasis, although also present o n the prior CT exam. No transition point identified to suggest small bowel obstruction. Appendix is n ot visualized, appears to be surgically absent, with postsurgical changes adjacent to the cecum. Scat tered colonic diverticula without adjacent inflammatory changes to suggest diverticulitis. Pelvic organs: Uterus is surgically absent. Bladder: Unremarkable. No mass. Abdominal wall: Small umbilical hernia with a loop of small bowel extending slightly into the hernia sac without evidence of obstruction. Bones: No acute fracture or suspicious intraosseous lesion. Chronic appearing mild compression deform ities of the superior endplates of the L2 and L3 vertebral bodies, unchanged. IMPRESSION: 1. Distended fluid-filled small bowel loops, most prominent in the left upper abdomen proximal to a s urgical anastomosis. There may be a degree of partial small bowel obstruction at the anastomosis. Fi ndings appear similar compared to the prior exam. Correlate with clinical findings. Superimposed ileu s or enteritis could also be considered. 2. 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 3. Scattered colonic diverticula without adjacent inflammatory changes to suggest diverticulitis. 4. Small umbilical hernia containing a loop of small bowel without evidence of obstruction.
[2024-05-11 14:33] LABS: Alanine Aminotransferase 19 U/L (7-40); Alkaline Phosphatase 61 U/L (46-116); Anion Gap 8 (5-15); Aspartate Aminotransferase 20 U/L (13-40); BUN/Creatinine Ratio 21.1 (10.0-20.0); Bilirubin, Total 0.9 mg/dL (0.2-1.0); Blood Urea Nitrogen 12 mg/dL (9-23); Calcium 9.8 mg/dL (8.7-10.4); Carbon Dioxide 25 mmol/L (20-31); Chloride 106 mmol/L (98-107); Glucose 104 mg/dL (74-106); Lipase 39 U/L (12-53); Potassium 3.7 mmol/L (3.5-5.1); Sodium 139 mmol/L (136-145); Total Protein 7.8 g/dL (5.7-8.2)
[2024-05-11] MEDS: MORPHINE SULFATE 4 MG/ML SYR/VIAL IV ONE (20:45)
[2024-05-11] MEDS: PANTOPRAZOLE 40 MG/10 ML VIAL INJ IV ONE (20:46)
[2024-05-11] MEDS: ONDANSETRON HCL 4 MG/2 ML VIAL IV ONE (20:46)
[2024-05-11] MEDS: SODIUM CHLORIDE 0.9% 500 ML IVB ONE (20:46)
[2024-05-11 20:48] VITALS: PULSE 97; RESP 17; O2SAT 97
--- NOTE | 2024-05-11 20:53 | DVHHP2 ---
History of Present Illness Reason for Visit: Abdominal pain History of Present Illness 69-year-old female presents for evaluation of abdominal pain. Patient presents with a two day history of left upper quadrant abdominal pain. She states the pain is intermittent and sharp in nature without radiation. She reports episodes of nausea without emesis. Also reports decreased appetite. No constipation or diarrhea. No other acute complaints reported. Past Medical History Denies Past Surgical History , hernia repair, cholecystectomy Family History Noncontributory Smoke: No ALCOHOL: none Drugs: None Lives: with Family Review of Systems Review of Systems Review of systems are currently negative otherwise addressed HPI Allergies: Coded Allergies: Sulfa Antibiotics (Verified Allergy, Mild, 06/05/21) PT REPORTS RASH Atropine (Verified Allergy, Unknown, 06/05/21) Hyoscyamine (Verified Allergy, Unknown, 06/05/21) Phenobarbital (Verified Allergy, Unknown, 06/05/21) Scopolamine (Verified Allergy, Unknown, 06/05/21) Medications Current Medications Medications Dose Ordered Sig/Miguelangel Route Start Time Stop Time Status Last Admin Dose Admin Pantoprazole Sodium 40 mg DAILY IV 05/12/24 10:00 Ondansetron HCl 4 mg Q4HP PRN IV 05/11/24 19:15 Morphine Sulfate 2 mg Q4HPRN PRN IV 05/11/24 19:15 Exam Vital Signs Vital Signs Date Time Temp Pulse Resp B/P (MAP) Pulse Ox O2 Delivery O2 Flow Rate FiO2 05/11/24 20:48 97 17 97 Room Air* 0 21 05/11/24 20:47 98.9 150/83 (105) 98.9 Exam Gen: 69-year-old female in mild distress Skin: Warm, dry, normal color and texture, no rash. HEENT: Normocephalic atraumatic, mucous membranes moist and pink. Neck: Cervical and supraclavicular nodes normal without enlargement, trachea is midline, thyroid gland is normal without masses. Pulmonary: Clear to auscultation and percussion bilaterally. Cardiac: Regular rate and rhythm. No murmur Abdomen: Soft, left upper quadrant pain, nondistended, bowel sounds present all 4 quadrants, no guarding, no rigidity, no organomegaly. Extremities: No cyanosis, clubbing, no edema Neuro: Cranial nerves II through XII grossly intact, normal affect and speech, no focal motor deficits. Labs/Xrays ORDERING PHYSICIAN: KARLI JOHNSON MD PROCEDURE(s): ABPL - CT AB PEL WO CON-NO ORAL OR IV REASON: pain ORDER NUMBER(s): [id number], ACCESSION NUMBER(s): [id number] CLINICAL INFORMATION: 69 years old, Female; pain. TECHNIQUE: Axial CT images of the abdomen and pelvis were obtained without IV contrast. Coronal and sagittal reformatted images were obtained, reviewed, and stored. Evaluation of the parenchymal organs is limited without IV contrast. Evaluation of the bowel and mesentery is limited without oral contrast. All CT scans at this medical facility are performed using dose modulation techniques as appropriate to a performed exam including the following: Automated exposure control was utilized; adjustment of the MA and/or KV according to patient size; and use of iterative reconstruction technique. CTDIvol = 11.69 mGy DLP = 588.67 mGy-cm COMPARISON: CT dated 06/03/2021. FINDINGS: Lung bases: Lung bases are clear. Liver: Grossly unremarkable in its noncontrast enhanced appearance. No abnormal density or focal lesion identified. Biliary: No calcified gallstones or biliary ductal dilatation. Spleen: Unremarkable. Pancreas: Grossly unremarkable in its noncontrast enhanced appearance. Adrenal glands: Unremarkable. No mass. Kidneys: No hydronephrosis. No renal or ureteral calculi. Aorta/Vascular: No aneurysm or significant calcification. Retroperitoneum: No mass or lymphadenopathy. Bowel/mesentery: Postsurgical changes of prior gastric bypass surgery. There are distended fluid-filled small bowel loops, most prominent in the left upper abdomen proximal to a surgical anastomosis in the central abdomen, with similar appearance compared to previous CT from 2021. There is some fecalization of small bowel in the left upper abdomen, which suggests bowel stasis, although also present on the prior CT exam. No transition point identified to suggest small bowel obstruction. Appendix is not visualized, appears to be surgically absent, with postsurgical changes adjacent to the cecum. Scattered colonic diverticula without adjacent inflammatory changes to suggest diverticulitis. Pelvic organs: Uterus is surgically absent. Bladder: Unremarkable. No mass. Abdominal wall: Small umbilical hernia with a loop of small bowel extending slightly into the hernia sac without evidence of obstruction. Bones: No acute fracture or suspicious intraosseous lesion. Chronic appearing mild compression deformities of the superior endplates of the L2 and L3 vertebral bodies, unchanged. IMPRESSION: 1. Distended fluid-filled small bowel loops, most prominent in the left upper abdomen proximal to a surgical anastomosis. There may be a degree of partial small bowel obstruction at the anastomosis. Findings appear similar compared to the prior exam. Correlate with clinical findings. Superimposed ileus or enteritis could also be considered. 2. 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 3. Scattered colonic diverticula without adjacent inflammatory changes to suggest diverticulitis. 4. Small umbilical hernia containing a loop of small bowel without evidence of obstruction. Labs Test 05/11/24 13:55 Range/Units White Blood Count 8.6 4.4-10.8 10^3/uL Red Blood Count 5.10 4.0-5.20 10^6/uL Hemoglobin 11.9 L 12.2-16.2 g/dL Hematocrit 38.2 36.0-46.0 % Mean Corpuscular Volume 75.0 L 80.0-100.0 fL Mean Corpuscular Hemoglobin 23.4 L 28.0-32.0 pg Mean Corpuscular Hemoglobin Concent 31.3 L 32.0-36.0 g/dL Red Cell Distribution Width 20.5 H 11.8-14.3 % Platelet Count 289 140-450 10^3/uL Mean Platelet Volume 8.3 6.9-10.8 fL Neutrophils (%) (Auto) 75.1 37.0-80.0 % Lymphocytes (%) (Auto) 18.4 10.0-50.0 % Monocytes (%) (Auto) 6.0 0.0-12.0 % Eosinophils (%) (Auto) 0.2 0.0-7.0 % Basophils (%) (Auto) 0.3 0.0-2.0 % Neutrophils # (Auto) 6.4 1.6-8.6 10 ^3/uL Lymphocytes # (Auto) 1.6 0.4-5.4 10 ^3/uL Monocytes # (Auto) 0.5 0-1.3 10 ^3/uL Eosinophils # (Auto) 0 0-0.8 10 ^3/uL Basophils # (Auto) 0 0-0.2 10 ^3/uL Nucleated Red Blood Cells 0.1 % Sodium Level 139 136-145 mmol/L Potassium Level 3.7 3.5-5.1 mmol/L Chloride Level 106 98-107 mmol/L Carbon Dioxide Level 25 20-31 mmol/L Anion Gap 8 5-15 Blood Urea Nitrogen 12 9-23 mg/dL Creatinine 0.57 0.550-1.02 mg/dL Glomerular Filtration Rate Calc 99 >90 mL/min BUN/Creatinine Ratio 21.1 H 10.0-20.0 Serum Glucose 104 74-106 mg/dL Calcium Level 9.8 8.7-10.4 mg/dL Total Bilirubin 0.9 0.2-1.0 mg/dL Aspartate Amino Transferase (AST) 20 13-40 U/L Alanine Aminotransferase (ALT) 19 7-40 U/L Alkaline Phosphatase 61 46-116 U/L Total Protein 7.8 5.7-8.2 g/dL Albumin 5.0 H 3.2-4.8 g/dL Lipase 39 12-53 U/L Assessment/Plan Assessment/Plan Assessment Acute abdominal pain Small-bowel obstruction Plan Admit the patient to [facility] to the hospitalist Surgical consultation Small-bowel follow-through pending NPO Maintenance IV fluids Pain management Continue treatment per orders. Plan discussed with: Patient My Orders Orders - KENIA GRIFFIN Procedure Category Date Status Time * Surgical Consult CONS 05/11/24 Transmitted Small Bowel Series-W XY 05/11/24 Logged Gastrogra 19:04 Sodium Chloride 0.9% PHA 05/11/24 In Process 19:15 Pantoprazole PHA 05/12/24 In Process (Protonix) 10:00 Basic Metabolic Panel LAB 05/12/24 Verified 04:00 Admit ADMIT 05/11/24 Transmitted 19:04 Ondansetron Hcl PHA 05/11/24 In Process (Zofran) 19:15 Complete Blood Count LAB 05/12/24 Verified 04:00 Npo (Nothing By DIET 05/12/24 Transmitted Mouth) Diet Breakfast Condition: Stable SILVIO 05/11/24 In Process 19:04 Bedrest With Bathroom SILVIO 05/11/24 In Process Privileg 19:04 Morphine Sulfate PHA 05/11/24 In Process Injection 19:15 Date of Service: May 11, 2024 Billing Provider: GRIFFIN,TENZIN AGACNP Common Visit Codes: [id number] INP/OBS CARE (MOD) [facility] May 11, 2024 20:53
[2024-05-12] VITALS (7 sets, daily range): BP systolic 103–148; BP diastolic 56–83; PULSE 84–99; RESP 16–20; TEMP 97.7–98.8; O2SAT 94–99
[2024-05-12] MEDS: SODIUM CHLORIDE 0.9% 1,000 ML IV ONE (00:03)
[2024-05-12] MEDS: ONDANSETRON HCL 4 MG/2 ML VIAL IV PRN (03:35)
[2024-05-12] MEDS: MORPHINE SULFATE INJ 2 MG/ml SYRG IV PRN (03:37)
[2024-05-12 05:36] LABS: Basophils # (auto) 0 10 ^3/uL (0-0.2); Basophils % (auto) 0.4 % (0.0-2.0); Eosinophils # (auto) 0 10 ^3/uL (0-0.8); Eosinophils % (auto) 0.4 % (0.0-7.0); Hematocrit 32.1 % (36.0-46.0); Hemoglobin 10.2 g/dL (12.2-16.2); Lymphocytes # (auto) 1.5 10 ^3/uL (0.4-5.4); Lymphocytes % (auto) 20.9 % (10.0-50.0); Mean Corpuscular Hemoglobin 23.7 pg (28.0-32.0); Mean Corpuscular Hgb Conc. 31.8 g/dL (32.0-36.0); Mean Corpuscular Volume 74.5 fL (80.0-100.0); Monocytes # (auto) 0.5 10 ^3/uL (0-1.3); Monocytes % (auto) 7.3 % (0.0-12.0); Neutrophils # (auto) 5.2 10 ^3/uL (1.6-8.6); Nucleated Red Blood Cells % 0.1 %; Platelet Count (auto) 265 10^3/uL (140-450); Red Blood Cells 4.31 10^6/uL (4.0-5.20); White Blood Cell 7.3 10^3/uL (4.4-10.8)
[2024-05-12 05:51] LABS: Sodium 141 mmol/L (136-145)
[2024-05-12 05:52] LABS: Anion Gap 7 (5-15); Carbon Dioxide 25 mmol/L (20-31)
[2024-05-12 05:57] LABS: Blood Urea Nitrogen 15 mg/dL (9-23); Glucose 94 mg/dL (74-106)
[2024-05-12 06:05] LABS: Calcium 8.7 mg/dL (8.7-10.4); Chloride 109 mmol/L (98-107); Potassium 3.2 mmol/L (3.5-5.1)
[2024-05-12] MEDS: PANTOPRAZOLE 40 MG/10 ML VIAL INJ IV SCH (09:21)
[2024-05-12] MEDS: POTASSIUM CHLORIDE 40 MEQ, LIDOCAINE 1% (LOCAL ANESTH.) 4 ML in SODIUM CHL 0.9% 250 ML IV ONE (10:45)
--- NOTE | 2024-05-12 10:57 | DVH ---
Procedure: XY SMALL BOWEL SERIES-W GASTROGRA Reason for study/Clinical History: SBO Comparison Study: None available at time of dictation. Technique: Single contrast small bowel series performed. FINDINGS/IMPRESSION: Initial college scouting coordinator view of the abdomen and pelvis appears demonstrates no acute process. Contrast is identified within the colon by 1 hour. This represents a normal small bowel transit time .
[2024-05-12] MEDS: GASTROGRAFIN 30 ML SOL ONE (13:20)
--- NOTE | 2024-05-12 15:11 | DVHPNRES ---
Progress Note Date Seen: May 12, 2024 Resident Creating Document: HUI BELLO RESIDENT Has the PT tested + for MRSA If YES, has PT been informed?: No Medical Necessity Reason Pt with a Central, PICC or Fol: No Subjective Review of Systems A 69-year-old female presents for evaluation of abdominal pain. Patient presents with a two day history of left upper quadrant abdominal pain. She states the pain is intermittent and sharp in nature without radiation. She reports episodes of nausea without emesis. Also reports decreased appetite. Patient states that she is not being able to defecate since 2 days, but she states passing gas Past Medical History Denies Past Surgical History Gastric bypass, , hernia repair, cholecystectomy Family History Noncontributory Smoke: No ALCOHOL: none Drugs: None Lives: with Family Objective vital signs Vital Sign Date Time Temp Pulse Resp B/P (MAP) Pulse Ox O2 Delivery O2 Flow Rate FiO2 05/12/24 13:00 97.9 89 17 113/75 (88) 98 97.9 05/12/24 08:00 Room Air* 0 21 Total Intake and Output 05/11/24 05/11/24 05/12/24 15:00 23:00 07:00 Intake Total 100 ml Balance 100 ml medications Current Medications Medications Dose Ordered Sig/Miguelangel Route Start Time Stop Time Status Last Admin Dose Admin Pantoprazole Sodium 40 mg DAILY IV 05/12/24 10:00 05/12/24 09:21 40 MG Ondansetron HCl 4 mg Q4HP PRN IV 05/11/24 19:15 05/12/24 03:35 4 MG Morphine Sulfate 2 mg Q4HPRN PRN IV 05/11/24 19:15 05/12/24 03:37 2 MG Examination Gen: 69-year-old female Skin: Warm, dry, normal color and texture, no rash. HEENT: Normocephalic atraumatic, mucous membranes moist and pink. Neck: Cervical and supraclavicular nodes normal without enlargement, trachea is midline, thyroid gland is normal without masses. Pulmonary: Clear to auscultation and percussion bilaterally. Cardiac: Regular rate and rhythm. No murmur Abdomen: Soft, left upper quadrant pain, nondistended, bowel sounds present all 4 quadrants, no guarding, no rigidity, no organomegaly. Extremities: No cyanosis, clubbing, no edema Neuro: Cranial nerves II through XII grossly intact, normal affect and speech, no focal motor deficits. laboratory and microbiology Laboratory Tests 05/12/24 05:14 Test 05/12/24 05:14 Range/Units Serum Glucose 94 74-106 mg/dL Problem List/Assessment/Plan Problem List/Assessment/Plan #partial small bowel obstruction at the anastomosis #sp odilon-en-Y gastric bypass. #Scattered colonic diverticula #Small umbilical hernia containing a loop of small bowel without evidence of obstruction #GERD #Obesity #Hypokalemia NPO except for ice chips Protonix IV K+ Small bowel series with gastrografin: Initial cargo router view of the abdomen and pelvis appears demonstrates no acute process. Contrast is identified within the colon by 1 hour. This represents a normal small bowel transit time. Zofran IV PRN IV fluids: d5w + LR 75cc/h Mild insulin sliding scale due to d5w Case discussed with Dr Salinas Plan discussed with: Patient, Other (rn) My Orders My Orders Orders - HUI BELLO RESIDENT Procedure Category Date Status Time Npo Except Ice Chips ORDERS 05/12/24 Transmitted 09:00 Date of Service: May 12, 2024 Billing Provider: JOY SALINAS DO Common Visit Codes: [id number] INP/OBS CARE(HIGH) HUI BELLO RESIDENT May 12, 2024 15:11 JOY SALINAS DO May 12, 2024 16:51
[2024-05-12] MEDS ORDERED: DEXTROSE (50%) 50ML SYRG IV PRN (16:00)
[2024-05-12] MEDS ORDERED: SODIUM CHLORIDE 0.9% 1,000 ML IV SCH (16:00)
[2024-05-12] MEDS: D5W/LACTATED RINGERS 1,000 ML IV SCH (17:12)
[2024-05-12] MEDS: InsuLIN REG 1unit/0.01ml Soln (100units/ml) SC SCH (17:12)
[2024-05-12] MEDS: ACCU-CHEK COMFORT CURVE STRIP VI SCH (17:13)
[2024-05-12] MEDS: ACETAMINOPHEN 325 MG TAB PO ONE (23:44)
[2024-05-13] VITALS (7 sets, daily range): BP systolic 96–112; BP diastolic 62–74; PULSE 69–85; RESP 16–18; TEMP 98–98.6; O2SAT 94–97
[2024-05-13 05:22] LABS: Basophils # (auto) 0 10 ^3/uL (0-0.2); Eosinophils # (auto) 0.2 10 ^3/uL (0-0.8); Hemoglobin 9.6 g/dL (12.2-16.2); Lymphocytes # (auto) 1.6 10 ^3/uL (0.4-5.4)
[2024-05-13 05:24] LABS: Basophils % (auto) 0.8 % (0.0-2.0); Eosinophils % (auto) 3.1 % (0.0-7.0); Hematocrit 29.1 % (36.0-46.0); Lymphocytes % (auto) 32.2 % (10.0-50.0); Mean Corpuscular Hemoglobin 24.4 pg (28.0-32.0); Mean Corpuscular Hgb Conc. 33.1 g/dL (32.0-36.0); Mean Corpuscular Volume 73.9 fL (80.0-100.0); Monocytes # (auto) 0.3 10 ^3/uL (0-1.3); Monocytes % (auto) 6.7 % (0.0-12.0); Neutrophils # (auto) 2.9 10 ^3/uL (1.6-8.6); Neutrophils % (auto) 57.2 % (37.0-80.0); Nucleated Red Blood Cells % 0.1 %; Platelet Count (auto) 221 10^3/uL (140-450); Red Blood Cells 3.94 10^6/uL (4.0-5.20); Red Cell Distribution Width 19.8 % (11.8-14.3); White Blood Cell 5.1 10^3/uL (4.4-10.8)
[2024-05-13 05:48] LABS: Alanine Aminotransferase 14 U/L (7-40); Albumin 3.7 g/dL (3.2-4.8); Anion Gap 7 (5-15); Aspartate Aminotransferase 15 U/L (13-40); BUN/Creatinine Ratio 28.6 (10.0-20.0); Bilirubin, Total 0.8 mg/dL (0.2-1.0); Blood Urea Nitrogen 14 mg/dL (9-23); Calcium 8.7 mg/dL (8.7-10.4); Carbon Dioxide 25 mmol/L (20-31); Glucose 87 mg/dL (74-106); Total Protein 5.8 g/dL (5.7-8.2)
[2024-05-13 05:51] LABS: Alkaline Phosphatase 45 U/L (46-116); Chloride 109 mmol/L (98-107); Potassium 3.2 mmol/L (3.5-5.1); Sodium 141 mmol/L (136-145)
[2024-05-13] MEDS: POTASSIUM CHLORIDE 40 MEQ, LIDOCAINE 1% (LOCAL ANESTH.) 4 ML in SODIUM CHL 0.9% 250 ML IV ONE (08:54)
--- NOTE | 2024-05-13 11:28 | DVHPNRES ---
Progress Note Date Seen: May 13, 2024 Resident Creating Document: HUI BELLO RESIDENT Has the PT tested + for MRSA If YES, has PT been informed?: No Medical Necessity Reason Pt with a Central, PICC or Fol: No Subjective Review of Systems A 69-year-old female presents for evaluation of abdominal pain. Patient presents with a two day history of left upper quadrant abdominal pain. She states the pain is intermittent and sharp in nature without radiation. She reports episodes of nausea without emesis. Also reports decreased appetite. Patient states that she is not being able to defecate since 2 days, but she states passing gas Past Medical History Denies Past Surgical History Gastric bypass, , hernia repair, cholecystectomy Family History Noncontributory Smoke: No ALCOHOL: none Drugs: None Lives: with Family Objective vital signs Vital Sign Date Time Temp Pulse Resp B/P (MAP) Pulse Ox O2 Delivery O2 Flow Rate FiO2 05/13/24 05:00 98.1 74 18 96/ 94 98.1 05/12/24 20:00 Room Air* 0 21 Total Intake and Output 05/12/24 05/12/24 05/13/24 15:00 23:00 07:00 Intake Total 1274 ml 275 ml 0 ml Balance 1274 ml 275 ml 0 ml medications Current Medications Medications Dose Ordered Sig/Miguelangel Route Start Time Stop Time Status Last Admin Dose Admin Pantoprazole Sodium 40 mg DAILY IV 05/12/24 10:00 05/13/24 08:53 40 MG Ondansetron HCl 4 mg Q4HP PRN IV 05/11/24 19:15 05/12/24 03:35 4 MG Morphine Sulfate 2 mg Q4HPRN PRN IV 05/11/24 19:15 05/12/24 03:37 2 MG Dextrose/Lactated Ringer's 1,000 ml @ 75 mls/hr [id number] IV 05/12/24 16:00 05/12/24 17:12 75 MLS/HR Diagnostic Test (Pha) 1 strip Q6HR 05/12/24 18:00 05/13/24 05:21 1 STRIP Insulin Human Regular Q6HR SC 05/12/24 18:00 Dextrose 50 ml UD PRN IV 05/12/24 16:00 Examination Gen: 69-year-old female Skin: Warm, dry, normal color and texture, no rash. HEENT: Normocephalic atraumatic, mucous membranes moist and pink. Neck: Cervical and supraclavicular nodes normal without enlargement, trachea is midline, thyroid gland is normal without masses. Pulmonary: Clear to auscultation and percussion bilaterally. Cardiac: Regular rate and rhythm. No murmur Abdomen: Soft, nondistended, bowel sounds present all 4 quadrants, no guarding, no rigidity, no organomegaly. Extremities: No cyanosis, clubbing, no edema Neuro: Cranial nerves II through XII grossly intact, normal affect and speech, no focal motor deficits laboratory and microbiology Laboratory Tests 05/13/24 05:09 Test 05/13/24 05:09 Range/Units Serum Glucose 87 74-106 mg/dL Problem List/Assessment/Plan Problem List/Assessment/Plan #partial small bowel obstruction at the anastomosis resolving #sp odilon-en-Y gastric bypass. #Scattered colonic diverticula #Small umbilical hernia containing a loop of small bowel without evidence of obstruction #GERD #Obesity #Hypokalemia Clear liquid diet Protonix IV K+ IV Small bowel series with gastrografin: Initial addiction social worker view of the abdomen and pelvis appears demonstrates no acute process. Contrast is identified within the colon by 1 hour. This represents a normal small bowel transit time. Zofran IV PRN Tylenol PO Pending surgical consult: patient had bowel movements, pain is resolving Case discussed with Dr Salinas Plan discussed with: Patient, Other My Orders My Orders Orders - HUI BELLO RESIDENT Procedure Category Date Status Time D5w/Lactated Ringers PHA 05/12/24 In Process (D5wlr) 16:00 Glucose Blood PHA 05/12/24 In Process (Accu-Chek Comfort 18:00 Insulin R (Human) PHA 05/12/24 In Process (Insulin R) 18:00 Dextrose 50% Syringe PHA 05/12/24 In Process 16:00 Potassium Chloride PHA 05/13/24 In Process (Potassium Chloride). 07:30 Clear Liq Diet DIET 05/13/24 Transmitted Breakfast Date of Service: May 13, 2024 Billing Provider: JOY SALINAS DO Common Visit Codes: [id number] INP/OBS CARE(HIGH) HUI BELLO RESIDENT May 13, 2024 11:28 JOY SALINAS DO May 19, 2024 06:43
[2024-05-13] MEDS: guaiFENesin 200 MG/10 ML UD PO ONE (14:18)
--- NOTE | 2024-05-13 14:26 | DVHINCON2 ---
Date of service: May 13, 2024 History of Present Illness 69-year-old female with a history of gastric bypass surgery with subsequent small-bowel obstructions requiring surgeries now admitted secondary to recurrent left upper quadrant abdominal pain for the past several days. Patient underwent a small-bowel follow-through which showed normal transit. Currently denies any abdominal pain and has been tolerating clear liquid diet without nausea or vomiting. Past Medical History History of small-bowel obstructions Past Surgical History Gastric bypass surgery. . Hernia repair. Surgery for small-bowel obstruction. Family History: Colon cancer G8 MOTHER FH: atrial fibrillation G8 MOTHER Hypertension G8 MOTHER G8 FATHER Family History Noncontributory Social History No alcohol, tobacco, IV drug use Allergies: Coded Allergies: Sulfa Antibiotics (Verified Allergy, Mild, 06/05/21) PT REPORTS RASH Atropine (Verified Allergy, Unknown, 06/05/21) Hyoscyamine (Verified Allergy, Unknown, 06/05/21) Phenobarbital (Verified Allergy, Unknown, 06/05/21) Scopolamine (Verified Allergy, Unknown, 06/05/21) Home Meds Reported Medications Linaclotide Base (LINZESS) 290 Mcg Cap, 290 MCG OR, CAP 06/04/21 Pantoprazole Sodium Sesquihydr (Protonix) 40 Mg Tab, 40 MG PO DAILY, #30 TAB 06/04/21 Current Medications Current Medications Medications (Trade) Dose Ordered Sig/Miguelangel Route PRN Reason Start Time Stop Time Status Last Admin Sodium Chloride 1,000 ml @ 75 mls/hr [id number] IV 05/12/24 16:00 05/12/24 15:57 DC Dextrose/Lactated Ringer's 1,000 ml @ 75 mls/hr [id number] IV 05/12/24 16:00 05/13/24 11:25 DC 05/12/24 17:12 Diagnostic Test (Pha) (Accu-Chek Comfort Curve T) 1 strip Q6HR 05/12/24 18:00 05/13/24 11:26 DC 05/13/24 05:21 Insulin Human Regular (InsuLIN R) Q6HR SC 05/12/24 18:00 05/13/24 11:26 DC Dextrose 50 ml UD PRN IV Blood Sugar LESS THAN 60 05/12/24 16:00 05/13/24 11:26 DC Vital Signs Vital Signs Date Time Temp Pulse Resp B/P (MAP) Pulse Ox O2 Delivery O2 Flow Rate FiO2 05/13/24 13:00 98.4 76 18 112/74 (87) 96 98.4 05/13/24 08:30 Room Air* 0 21 Physical Exam GEN: Age-appropriate female in no acute distress. Alert. HEENT: Normocephalic atraumatic. Moist mucous membranes. Anicteric sclerae. CV: RRR Respiratory: CTAB ABD: Slightly obese abdomen. Soft. Nontender. Nondistended. CT of the abdomen and pelvis: Distended fluid-filled small bowel loops most prominent in the left upper abdomen and proximal to the surgical anastomosis. Postsurgical changes of prior Bryan-en-Y gastric bypass. Small-bowel follow-through: Contrast in colon in 1 hour. Labs/Diagnostic Data Labs Test 05/13/24 05:18 05/13/24 05:09 05/11/24 13:55 Range/Units POC Glucose 101 70-106 mg/dl White Blood Count 5.1 # 4.4-10.8 10^3/uL Red Blood Count 3.94 L 4.0-5.20 10^6/uL Hemoglobin 9.6 L 12.2-16.2 g/dL Hematocrit 29.1 L 36.0-46.0 % Mean Corpuscular Volume 73.9 L 80.0-100.0 fL Mean Corpuscular Hemoglobin 24.4 L 28.0-32.0 pg Mean Corpuscular Hemoglobin Concent 33.1 32.0-36.0 g/dL Red Cell Distribution Width 19.8 H 11.8-14.3 % Platelet Count 221 140-450 10^3/uL Mean Platelet Volume 8.2 6.9-10.8 fL Neutrophils (%) (Auto) 57.2 37.0-80.0 % Lymphocytes (%) (Auto) 32.2 10.0-50.0 % Monocytes (%) (Auto) 6.7 0.0-12.0 % Eosinophils (%) (Auto) 3.1 0.0-7.0 % Basophils (%) (Auto) 0.8 0.0-2.0 % Neutrophils # (Auto) 2.9 1.6-8.6 10 ^3/uL Lymphocytes # (Auto) 1.6 0.4-5.4 10 ^3/uL Monocytes # (Auto) 0.3 0-1.3 10 ^3/uL Eosinophils # (Auto) 0.2 0-0.8 10 ^3/uL Basophils # (Auto) 0 0-0.2 10 ^3/uL Nucleated Red Blood Cells 0.1 % Sodium Level 141 136-145 mmol/L Potassium Level 3.2 L 3.5-5.1 mmol/L Chloride Level 109 H 98-107 mmol/L Carbon Dioxide Level 25 20-31 mmol/L Anion Gap 7 5-15 Blood Urea Nitrogen 14 9-23 mg/dL Creatinine 0.49 L 0.550-1.02 mg/dL Glomerular Filtration Rate Calc 103 >90 mL/min BUN/Creatinine Ratio 28.6 H 10.0-20.0 Serum Glucose 87 74-106 mg/dL Calcium Level 8.7 8.7-10.4 mg/dL Total Bilirubin 0.8 0.2-1.0 mg/dL Aspartate Amino Transferase (AST) 15 13-40 U/L Alanine Aminotransferase (ALT) 14 7-40 U/L Alkaline Phosphatase 45 L 46-116 U/L Total Protein 5.8 5.7-8.2 g/dL Albumin 3.7 3.2-4.8 g/dL Lipase 39 12-53 U/L Assessment 1. Resolving partial small bowel obstruction Plan/Recommendation 1. Advance diet as tolerated. Surgery signing off. Plan discussed with: Patient BRITT MICHAUD MD May 13, 2024 14:26
[2024-05-14 01:00] VITALS: BP 123/71; PULSE 72; RESP 18; TEMP 97.9; O2SAT 95
[2024-05-14] MEDS: guaiFENesin 200 MG/10 ML UD GT PRN (01:04)
[2024-05-14 01:33] LABS: Urine Bacteria None Seen /hpf (None Seen)
[2024-05-14 01:50] LABS: Urine Blood Negative /uL (Negative); Urine Clarity Clear (Clear); Urine Color Yellow (Yellow); Urine Mucus FEW (None Seen); Urine Protein, UAD Negative (Negative); Urine Specific Gravity 1.026 (1.001-1.035); Urine Squamous Epithelial Cell FEW /hpf (<5); Urine Urobilinogen Normal (Negative); Urine WBC 1 /HPF (0-5); Urine pH 5.5 (5.0-9.0)
[2024-05-14 05:00] VITALS: BP 127/72; PULSE 82; RESP 18; TEMP 97.8; O2SAT 94
[2024-05-14 06:25] LABS: Basophils # (auto) 0 10 ^3/uL (0-0.2); Basophils % (auto) 0.4 % (0.0-2.0); Eosinophils # (auto) 0.1 10 ^3/uL (0-0.8); Eosinophils % (auto) 1.5 % (0.0-7.0); Hemoglobin 10.2 g/dL (12.2-16.2); Lymphocytes # (auto) 1.5 10 ^3/uL (0.4-5.4); Lymphocytes % (auto) 27.3 % (10.0-50.0); Mean Corpuscular Hemoglobin 23.6 pg (28.0-32.0); Mean Corpuscular Hgb Conc. 31.9 g/dL (32.0-36.0); Mean Corpuscular Volume 73.8 fL (80.0-100.0); Monocytes # (auto) 0.3 10 ^3/uL (0-1.3); Neutrophils # (auto) 3.6 10 ^3/uL (1.6-8.6); Neutrophils % (auto) 64.8 % (37.0-80.0); Platelet Count (auto) 249 10^3/uL (140-450); Red Blood Cells 4.34 10^6/uL (4.0-5.20); White Blood Cell 5.6 10^3/uL (4.4-10.8)
[2024-05-14 06:50] LABS: Alanine Aminotransferase 11 U/L (7-40); Albumin 3.8 g/dL (3.2-4.8); Alkaline Phosphatase 50 U/L (46-116); Anion Gap 8 (5-15); Aspartate Aminotransferase 13 U/L (13-40); BUN/Creatinine Ratio 11.8 (10.0-20.0); Bilirubin, Total 0.9 mg/dL (0.2-1.0); Blood Urea Nitrogen 6 mg/dL (9-23); Carbon Dioxide 27 mmol/L (20-31); Chloride 105 mmol/L (98-107); Glucose 92 mg/dL (74-106); Potassium 3.4 mmol/L (3.5-5.1); Sodium 140 mmol/L (136-145)
[2024-05-14 08:30] VITALS: PULSE 102; RESP 20; O2SAT 98
[2024-05-14] MEDS: POTASSIUM CHL 20 Meq TABLET PO ONE (08:40)
[2024-05-14 09:00] VITALS: BP 104/67; PULSE 102; RESP 20; TEMP 97.2; O2SAT 98
[2024-05-14] MEDS ORDERED: ACET-1882 PO (09:58)
--- NOTE | 2024-05-14 10:40 | DVHDSRES ---
Discharge Summary Date of Admission Resident Creating Document: HUI BELLO RESIDENT May 11, 2024 at 19:04 Date of Discharge: May 14, 2024 Admitting Diagnosis small bowel obstruction Labs/Diagnostic Data: Laboratory Results Test 05/14/24 06:05 05/14/24 00:30 05/13/24 05:18 05/11/24 13:55 White Blood Count 5.6 10^3/uL (4.4-10.8) Red Blood Count 4.34 10^6/uL (4.0-5.20) Hemoglobin 10.2 g/dL (12.2-16.2) Hematocrit 32.0 % (36.0-46.0) Mean Corpuscular Volume 73.8 fL (80.0-100.0) Mean Corpuscular Hemoglobin 23.6 pg (28.0-32.0) Mean Corpuscular Hemoglobin Concent 31.9 g/dL (32.0-36.0) Red Cell Distribution Width 20.0 % (11.8-14.3) Platelet Count 249 10^3/uL (140-450) Mean Platelet Volume 8.6 fL (6.9-10.8) Neutrophils (%) (Auto) 64.8 % (37.0-80.0) Lymphocytes (%) (Auto) 27.3 % (10.0-50.0) Monocytes (%) (Auto) 6.0 % (0.0-12.0) Eosinophils (%) (Auto) 1.5 % (0.0-7.0) Basophils (%) (Auto) 0.4 % (0.0-2.0) Neutrophils # (Auto) 3.6 10 ^3/uL (1.6-8.6) Lymphocytes # (Auto) 1.5 10 ^3/uL (0.4-5.4) Monocytes # (Auto) 0.3 10 ^3/uL (0-1.3) Eosinophils # (Auto) 0.1 10 ^3/uL (0-0.8) Basophils # (Auto) 0 10 ^3/uL (0-0.2) Nucleated Red Blood Cells 0.0 % Sodium Level 140 mmol/L (136-145) Potassium Level 3.4 mmol/L (3.5-5.1) Chloride Level 105 mmol/L (98-107) Carbon Dioxide Level 27 mmol/L (20-31) Anion Gap 8 (5-15) Blood Urea Nitrogen 6 mg/dL (9-23) Creatinine 0.51 mg/dL (0.550-1.02) Glomerular Filtration Rate Calc 102 mL/min (>90) BUN/Creatinine Ratio 11.8 (10.0-20.0) Serum Glucose 92 mg/dL (74-106) Calcium Level 9.0 mg/dL (8.7-10.4) Total Bilirubin 0.9 mg/dL (0.2-1.0) Aspartate Amino Transferase (AST) 13 U/L (13-40) Alanine Aminotransferase (ALT) 11 U/L (7-40) Alkaline Phosphatase 50 U/L (46-116) Total Protein 6.0 g/dL (5.7-8.2) Albumin 3.8 g/dL (3.2-4.8) Urine Color Yellow (Yellow) Urine Clarity Clear (Clear) Urine pH 5.5 (5.0-9.0) Urine Specific [place] 1.026 (1.001-1.035) Urine Protein Negative (Negative) Urine Ketones 1+ (Negative) Urine Blood Negative /uL (Negative) Urine Nitrite Negative (Negative) Urine Bilirubin Negative (Negative) Urine Urobilinogen Normal mg/dL (Negative) Urine Leukocyte Esterase Negative /uL (Negative) Urine RBC <1 /hpf (0 - 4) Urine Microscopic WBC 1 /HPF (0-5) Urine Squamous Epithelial Cells Few /hpf (<5) Urine Bacteria None seen /hpf (None Seen) Urine Mucus Few (None Seen) Urine Glucose Normal mg/dL (Normal) POC Glucose 101 mg/dl (70-106) Lipase 39 U/L (12-53) Other Laboratory Tests 05/14/24 06:05 Brief Hx & Hospital Course: A 69-year-old female with a history of Odilon-en-Y gastric bypass, GERD and obesity was admitted for evaluation of left upper quadrant abdominal pain, nausea, and decreased appetite. Workup revealed a resolving partial small bowel obstruction at the anastomosis, with imaging showing distended fluid-filled loops of small bowel proximal to the surgical site. A small umbilical hernia containing a loop of bowel was noted without signs of obstruction. The patient was managed conservatively with a clear liquid diet, IV fluids, proton pump inhibitors, and potassium supplementation. A small bowel series with Gastrografin demonstrated normal transit time, and the patient reported bowel movements with improving pain. Given clinical improvement, the patient is deemed stable for discharge with instructions to follow a gradual diet advancement, maintain hydration, and monitor for recurrence of obstructive symptoms such as worsening pain, distension, or emesis. She is advised to follow up with her surgical team for further evaluation of her prior gastric bypass anatomy and umbilical hernia. She was informed of the signs of recurrence requiring emergency evaluation. Gen: 69-year-old female Skin: Warm, dry, normal color and texture, no rash. HEENT: Normocephalic atraumatic, mucous membranes moist and pink. Neck: Cervical and supraclavicular nodes normal without enlargement, trachea is midline, thyroid gland is normal without masses. Pulmonary: Clear to auscultation and percussion bilaterally. Cardiac: Regular rate and rhythm. No murmur Abdomen: Soft, nondistended, bowel sounds present all 4 quadrants, no guarding, no rigidity, no organomegaly. Extremities: No cyanosis, clubbing, no edema Neuro: Cranial nerves II through XII grossly intact, normal affect and speech, no focal motor deficits Her case was discussed with Dr. Salinas prior to discharge. Consults/Reason for consult surgery due to SBO Operations or Procedures ORDERING PHYSICIAN: KARLI JOHNSON MD PROCEDURE(s): ABPL - CT AB PEL WO CON-NO ORAL OR IV REASON: pain ORDER NUMBER(s): [id number], ACCESSION NUMBER(s): [id number] CLINICAL INFORMATION: 69 years old, Female; pain. TECHNIQUE: Axial CT images of the abdomen and pelvis were obtained without IV contrast. Coronal and sagittal reformatted images were obtained, reviewed, and stored. Evaluation of the parenchymal organs is limited without IV contrast. Evaluation of the bowel and mesentery is limited without oral contrast. All CT scans at this medical facility are performed using dose modulation techniques as appropriate to a performed exam including the following: Automated exposure control was utilized; adjustment of the MA and/or KV according to patient size; and use of iterative reconstruction technique. CTDIvol = 11.69 mGy DLP = 588.67 mGy-cm COMPARISON: CT dated 06/03/2021. FINDINGS: Lung bases: Lung bases are clear. Liver: Grossly unremarkable in its noncontrast enhanced appearance. No abnormal density or focal lesion identified. Biliary: No calcified gallstones or biliary ductal dilatation. Spleen: Unremarkable. Pancreas: Grossly unremarkable in its noncontrast enhanced appearance. Adrenal glands: Unremarkable. No mass. Kidneys: No hydronephrosis. No renal or ureteral calculi. Aorta/Vascular: No aneurysm or significant calcification. Retroperitoneum: No mass or lymphadenopathy. Bowel/mesentery: Postsurgical changes of prior gastric bypass surgery. There are distended fluid-filled small bowel loops, most prominent in the left upper abdomen proximal to a surgical anastomosis in the central abdomen, with similar appearance compared to previous CT from 2021. There is some fecalization of small bowel in the left upper abdomen, which suggests bowel stasis, although also present on the prior CT exam. No transition point identified to suggest small bowel obstruction. Appendix is not visualized, appears to be surgically absent, with postsurgical changes adjacent to the cecum. Scattered colonic diverticula without adjacent inflammatory changes to suggest diverticulitis. Pelvic organs: Uterus is surgically absent. Bladder: Unremarkable. No mass. Abdominal wall: Small umbilical hernia with a loop of small bowel extending slightly into the hernia sac without evidence of obstruction. Bones: No acute fracture or suspicious intraosseous lesion. Chronic appearing mild compression deformities of the superior endplates of the L2 and L3 vertebral bodies, unchanged. IMPRESSION: 1. Distended fluid-filled small bowel loops, most prominent in the left upper abdomen proximal to a surgical anastomosis. There may be a degree of partial small bowel obstruction at the anastomosis. Findings appear similar compared to the prior exam. Correlate with clinical findings. Superimposed ileus or enteritis could also be considered. 2. 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 3. Scattered colonic diverticula without adjacent inflammatory changes to suggest diverticulitis. 4. Small umbilical hernia containing a loop of small bowel without evidence of obstruction. Procedure: XY SMALL BOWEL SERIES-W GASTROGRA Reason for study/Clinical History: SBO Comparison Study: None available at time of dictation. Technique: Single contrast small bowel series performed. FINDINGS/IMPRESSION: Initial fire investigation lieutenant view of the abdomen and pelvis appears demonstrates no acute process. Contrast is identified within the colon by 1 hour. This represents a normal small bowel transit time. Condition at Discharge: Stable Final Diagnosis/Problems List #partial small bowel obstruction at the anastomosis resolved #sp odilon-en-Y gastric bypass. #Scattered colonic diverticula #Small umbilical hernia containing a loop of small bowel without evidence of obstruction #GERD #Obesity #Hypokalemia Discharge Disposition: Home Discharge Instruct/Medications Diet: See Comment Diet comment: soft diet for 7 days Activity: Light activity Follow Up/Referral: f/u pcp in 7 days Medications: see prescription Discharge Statement: "Patient was advised to return to the ER or call 911 if any headaches, dizziness, shortness of breath, chest pain, abdominal pain, bleeding, fevers, or worsening of medical condition. Patient was counseled about treatment plan, medications, possible side effects, patientverbalized understanding. All questions were answered to the best of my ability. This discharge took greater then 30 minutes in planning, reviewing documentation, counseling the patient, and discussing with other team members." ASSESSMENT ASSESSMENT Assessment SBO resolved Date of Service: May 14, 2024 Billing Provider: JOY SALINAS DO Common Visit Codes: [id number] DISCH DAY >30min HUI BELLO RESIDENT May 14, 2024 10:40 JOY SALINAS DO May 19, 2024 06:43
[2024-05-14 11:13] VITALS: BP 104/67; PULSE 102; RESP 20; TEMP 97.2; O2SAT 98
== END 2024-05-14 12:10 | disposition home or self-care (01) | DRG 390 ==
LOC: ER 12:19 → OVERFLOW 19:04 → EEVIPCON 19:04 → EAST 19:06
PROVIDERS: ADMIT Internal Medicine; ATTEND Internal Medicine
DX: K56.609 Unspecified intestinal obstruction, unspecified as to partial versus complete obstruction (principal); K57.30 Diverticulosis of large intestine without perforation or abscess without bleeding; K56.51 Intestinal adhesions [bands], with partial obstruction; K42.9 Umbilical hernia without obstruction or gangrene; K21.9 Gastro-esophageal reflux disease without esophagitis; E66.9 Obesity, unspecified; Z68.32 Body mass index [BMI] 32.0-32.9, adult; E87.6 Hypokalemia; Z98.84 Bariatric surgery status; Z80.0 Family history of malignant neoplasm of digestive organs; Z82.49 Family history of ischemic heart disease and other diseases of the circulatory system; Z88.2 Allergy status to sulfonamides; Z88.8 Allergy status to other drugs, medicaments and biological substances; Z79.899 Other long term (current) drug therapy; Z98.891 History of uterine scar from previous surgery; Z90.49 Acquired absence of other specified parts of digestive tract
CPT/HCPCS: 36415; 74176; 74250; 80048; 80053; 81001; 82962; 83690; 85025; G0378; J2003; J2405; J2470

== ENCOUNTER 2024-08-12 06:26 | Outpatient (CLI) | payer BC, MEDICARE ==
[~2024-08-12 06:26] MED LIST changes: +ACET-1882 PO
[2024-08-12 07:11] LABS: Basophils # (auto) 0 10 ^3/uL (0-0.2); Basophils % (auto) 1.1 % (0.0-2.0); Eosinophils # (auto) 0.1 10 ^3/uL (0-0.8); Eosinophils % (auto) 2.2 % (0.0-7.0); Hematocrit 30.6 % (36.0-46.0); Lymphocytes % (auto) 54.7 % (10.0-50.0); Mean Corpuscular Hemoglobin 23.4 pg (28.0-32.0); Mean Corpuscular Hgb Conc. 32.5 g/dL (32.0-36.0); Mean Corpuscular Volume 72.1 fL (80.0-100.0); Monocytes # (auto) 0.3 10 ^3/uL (0-1.3); Monocytes % (auto) 7.4 % (0.0-12.0); Neutrophils # (auto) 1.3 10 ^3/uL (1.6-8.6); Neutrophils % (auto) 34.6 % (37.0-80.0); Platelet Count (auto) 248 10^3/uL (140-450); Red Blood Cells 4.25 10^6/uL (4.0-5.20); Red Cell Distribution Width 20.5 % (11.8-14.3); White Blood Cell 3.7 10^3/uL (4.4-10.8)
[2024-08-12 07:19] LABS: Urine Bacteria FEW /hpf (None Seen); Urine Blood Negative /uL (Negative); Urine Clarity Turbid (Clear); Urine Color Yellow (Yellow); Urine Mucus FEW (None Seen); Urine Protein, UAD TRACE (Negative); Urine Specific Gravity 1.031 (1.001-1.035); Urine Squamous Epithelial Cell MOD /hpf (<5); Urine Urobilinogen 2 mg/dL (Negative); Urine WBC 12 /HPF (0-5); Urine pH 5.5 (5.0-9.0)
[2024-08-12 07:36] LABS: Alanine Aminotransferase 13 U/L (7-40); Albumin 4.1 g/dL (3.2-4.8); Alkaline Phosphatase 67 U/L (46-116); Anion Gap 9 (5-15); Aspartate Aminotransferase 17 U/L (<34); BUN/Creatinine Ratio 23.1 (10.0-20.0); Bilirubin, Total 0.5 mg/dL (0.2-1.0); Blood Urea Nitrogen 15 mg/dL (9-23); Calcium 9.3 mg/dL (8.7-10.4); Carbon Dioxide 27 mmol/L (20-31); Cholesterol 149 mg/dL (< 200); Glucose 85 mg/dL (74-106); HDL Cholesterol 59 mg/dL (40-59); LDL Cholesterol 82 mg/dL (< 100); Potassium 3.9 mmol/L (3.5-5.1); Total Protein 6.3 g/dL (5.7-8.2); Triglycerides 57 mg/dL (< 150)
[2024-08-12 07:39] LABS: T3 Total 0.97 ng/mL (0.60-1.81)
[2024-08-12 07:40] LABS: Free T4 (Free Thyroxine) 0.92 ng/dL (0.89-1.76)
[2024-08-12 07:42] LABS: Chloride 109 mmol/L (98-107); Sodium 145 mmol/L (136-145)
== END 2024-08-12 17:00 | disposition home or self-care (01) ==
LOC: LAB 06:26
PROVIDERS: ATTEND Nurse Practitioner Family
DX: E78.5 Hyperlipidemia, unspecified (principal); E53.8 Deficiency of other specified B group vitamins; E55.9 Vitamin D deficiency, unspecified; E16.2 Hypoglycemia, unspecified; Z00.00 Encounter for general adult medical examination without abnormal findings
CPT/HCPCS: 36415; 80053; 80061; 81001; 82306; 82607; 83036; 84439; 84443; 84480; 85025

== ENCOUNTER 2024-11-08 06:09 | Outpatient (CLI) | payer BC, MEDICARE ==
[2024-11-08 06:29] LABS: Hematocrit 31.1 % (36.0-46.0); Hemoglobin 10.0 g/dL (12.2-16.2); Mean Corpuscular Hemoglobin 23.2 pg (28.0-32.0); Mean Corpuscular Volume 72.6 fL (80.0-100.0); Nucleated Red Blood Cells % 0.0 %
[2024-11-08 07:02] LABS: Alanine Aminotransferase 14 U/L (7-40); Albumin 4.0 g/dL (3.2-4.8); Alkaline Phosphatase 61 U/L (46-116); Anion Gap 9 (5-15); BUN/Creatinine Ratio 16.2 (10.0-20.0); Blood Urea Nitrogen 11 mg/dL (9-23); Calcium 8.8 mg/dL (8.7-10.4); Carbon Dioxide 26 mmol/L (20-31); Glucose 90 mg/dL (74-106); Potassium 4.3 mmol/L (3.5-5.1); Sodium 143 mmol/L (136-145); Total Protein 6.6 g/dL (5.7-8.2); Uric Acid 4.1 mg/dL (3.1-7.8)
[2024-11-08 07:03] LABS: Bilirubin, Total 0.6 mg/dL (0.2-1.0); Chloride 108 mmol/L (98-107)
[2024-11-08 07:25] LABS: Triglycerides 66 mg/dL (< 150)
[2024-11-08 07:27] LABS: Cholesterol 181 mg/dL (< 200)
[2024-11-08 07:28] LABS: HDL Cholesterol 75 mg/dL (40-59)
[2024-11-08 10:34] LABS: Free T3 2.82 pg/mL (2.3-4.2)
== END 2024-11-08 17:00 | disposition home or self-care (01) ==
LOC: LAB 06:09
PROVIDERS: ATTEND Family Medicine
DX: E16.2 Hypoglycemia, unspecified (principal); K56.51 Intestinal adhesions [bands], with partial obstruction; K21.9 Gastro-esophageal reflux disease without esophagitis; Z00.00 Encounter for general adult medical examination without abnormal findings
CPT/HCPCS: 36415; 80053; 80061; 82607; 83036; 84100; 84443; 84480; 84481; 84550; 85025